=== PATIENT | female | born 1995 | race African-American/Black ===

== ENCOUNTER 2017-05-08 22:26 | Outpatient (CLI) | payer MEDICAID ==
[2017-05-08 22:58] LABS: APPEARANCE,URINE SLIGHTLY-CLOUDY; BILIRUBIN,URINE NEGATIVE (NEGATIVE); COLOR,URINE YELLOW; GLUCOSE, URINE NEGATIVE (NEGATIVE); KETONES,URINE NEGATIVE (NEGATIVE); LEUKOCYTE ESTERASE,URINE LARGE (NEGATIVE); NITRITE,URINE NEGATIVE (NEGATIVE); PROTEIN,URINE NEGATIVE (NEGATIVE); URINE SPECIFIC GRAVITY 1.004; UROBILINOGEN,URINE NEGATIVE mg/dL (<2.0)
[2017-05-08 23:09] LABS: URINE AMPHETAMINES SCREEN NEGATIVE; URINE BARBITURATES SCREEN NEGATIVE; URINE BENZODIAZEPINES SCREEN NEGATIVE; URINE COCAINE SCREEN NEGATIVE; URINE MARIJUANA (THC) SCREEN NEGATIVE; URINE METHADONE SCREEN NEGATIVE; URINE PHENCYCLIDINE SCREEN NEGATIVE
[2017-05-08 23:57] LABS: BACTERIA (WET MOUNT) 4+ BACTERIA SEEN; EPITHELIALS (WET MOUNT) 4+ EPITHELIALS SEEN; RBCS (WET MOUNT) FEW RBCS SEEN; T.VAGINALIS (WET MOUNT) COULD NOT PERFORM; WBCS (WET MOUNT) 4+ WBCS SEEN; YEAST (WET MOUNT) NO YEAST SEEN
[2017-05-09] MEDS ORDERED: METRONIDAZOLE 500 MG TABLET PO ONE (00:01)
[2017-05-09] MEDS ORDERED: METRONIDAZOLE 500 MG TABLET ONE (00:05)
--- NOTE | 2017-05-09 01:16 | Non Stress Test Report ---
Non Stress Test Datetime Report Generated by CPN: 05/09/2017 01:16 DEMOGRAPHIC Test Number: 1 EGA NST: 38.5 INDICATION Indication for Study: Ordered by Provider VITAL SIGNS Temperature - NST: 97.7 Pulse - NST: 68 RESP - NST: 16 NBPSYS NST: 114 NBPDIA NST: 66 URINE RESULTS Urine Protein, NST: Negative Urine Ketones - NST: Negative Urine Glucose - NST: Negative Urine Blood - NST: Negative MONITORING Monitor Explained: Monitor Explained; Test Explained; Patient Verbalized Understanding Time on Monitor: 05/08/2017 22:43 Time off Monitor: 05/09/2017 00:30 NST Duration: 107 NST INTERVENTIONS NST Interventions: PO Hydration BABY A: [id number] BABY A Movement : Present Contraction Frequency : none FHR Baseline : 140 Accelerations : 15X15 Decelerations : None Variability : Moderate 6-25bpm NST Review: Meets Criteria for Reactive NST NST Review and Verified By : Chalman, A. RN NST Results: Reactive NST REPORT Report Trigger: Send Report
[2017-05-09 01:19] LABS: CHLAM PCR NOT DETECTED (NOT DETECT); GON PCR NOT DETECTED (NOT DETECT)
== END 2017-05-09 00:50 | disposition home or self-care (01) ==
LOC: LC 22:26
PROVIDERS: ATTEND Student in an Organized Health Care Education/Training Program
PROC: 4A1HXCZ Monitoring of Products of Conception, Cardiac Rate, External Approach (ICD-10-PCS; principal; 2017-05-08)
DX: O47.1 False labor at or after 37 completed weeks of gestation (principal); O23.593 Infection of other part of genital tract in pregnancy, third trimester; B96.89 Other specified bacterial agents as the cause of diseases classified elsewhere; Z3A.38 38 weeks gestation of pregnancy
CPT/HCPCS: 59025; 87086; 87210; 81001; 80307; 87491; 87591; J3490

== ENCOUNTER 2017-05-20 23:39 | Outpatient (CLI) | payer MEDICAID ==
[2017-05-21 00:12] LABS: APPEARANCE,URINE CLEAR; BILIRUBIN,URINE NEGATIVE (NEGATIVE); COLOR,URINE STRAW; GLUCOSE, URINE NEGATIVE (NEGATIVE); KETONES,URINE TRACE mg/dL (NEGATIVE); LEUKOCYTE ESTERASE,URINE NEGATIVE (NEGATIVE); NITRITE,URINE NEGATIVE (NEGATIVE); PROTEIN,URINE NEGATIVE (NEGATIVE); URINE SPECIFIC GRAVITY 1.005; UROBILINOGEN,URINE NEGATIVE mg/dL (<2.0)
--- NOTE | 2017-05-21 00:56 | Non Stress Test Report ---
Non Stress Test Datetime Report Generated by CPN: 05/21/2017 00:56 DEMOGRAPHIC Test Number: 2 EGA NST: 40.4 INDICATION Indication for Study: Ordered by Provider URINE RESULTS Urine Protein, NST: Negative Urine Ketones - NST: Positive Urine Glucose - NST: Negative Urine Blood - NST: Negative MONITORING Monitor Explained: Monitor Explained; Test Explained; Patient Verbalized Understanding Time on Monitor: 05/21/2017 00:04 Time off Monitor: 05/21/2017 00:46 NST Duration: 42 NST INTERVENTIONS NST Interventions: PO Hydration Physician Notified NST: Dr. Avila BABY A: [id number] BABY A Movement : Present Contraction Frequency : occasional FHR Baseline : 135 Accelerations : 15X15 Decelerations : None Variability : Moderate 6-25bpm NST Review: Meets Criteria for Reactive NST NST Review and Verified By : NAVARRO De León NST Results: Reactive NST REPORT Report Trigger: Send Report
[2017-05-21 02:38] LABS: URINE AMPHETAMINES SCREEN NEGATIVE; URINE BARBITURATES SCREEN NEGATIVE; URINE BENZODIAZEPINES SCREEN NEGATIVE; URINE COCAINE SCREEN NEGATIVE; URINE MARIJUANA (THC) SCREEN NEGATIVE; URINE METHADONE SCREEN NEGATIVE; URINE PHENCYCLIDINE SCREEN NEGATIVE
== END 2017-05-21 01:42 | disposition home or self-care (01) ==
LOC: LC 23:39
PROVIDERS: ATTEND Obstetrics & Gynecology Gynecology
PROC: 4A1HXCZ Monitoring of Products of Conception, Cardiac Rate, External Approach (ICD-10-PCS; principal; 2017-05-20)
DX: O48.0 Post-term pregnancy (principal); Z3A.40 40 weeks gestation of pregnancy
CPT/HCPCS: 59025; 80307; 81005

== ENCOUNTER 2018-08-18 19:06 | Emergency (ER) | payer MEDICAID ==
[2018-08-18] MEDS ORDERED: HYDROCODONE/ACETAMINOPHEN 5-325 MG TABLET PO ONE (20:46)
--- NOTE | 2018-08-18 21:36 | RADIOLOGY REPORT (SQ) ---
EXAM DESCRIPTION: XR KNEE 4 OR MORE VIEWS COMPLETED DATE/TME: 08/18/2018 20:45 CLINICAL HISTORY: 22 years, Female, INJURY COMPARISON: None. NUMBER OF VIEWS: Four TECHNIQUE: Four views LEFT knee were obtained in AP, lateral and bilateral oblique projection. LIMITATIONS: None. FINDINGS: No fracture or dislocation. The joint spaces are preserved. Soft tissues are within normal limits. IMPRESSION: No acute radiographic abnormality. copyright 2010 [employer]- All Rights Reserved
[2018-08-18 21:58] LABS: APPEARANCE,URINE CLOUDY; BILIRUBIN,URINE NEGATIVE (NEGATIVE); COLOR,URINE YELLOW; GLUCOSE, URINE NEGATIVE (NEGATIVE); KETONES,URINE NEGATIVE (NEGATIVE); LEUKOCYTE ESTERASE,URINE LARGE (NEGATIVE); NITRITE,URINE NEGATIVE (NEGATIVE); PROTEIN,URINE 30 mg/dL (NEGATIVE); URINE SPECIFIC GRAVITY 1.032
--- NOTE | 2018-08-18 22:32 | ER Document Report ---
Addendum entered and electronically signed by CYNTHIA HARLEY PA-C 08/18/18 22:32: Discharge - Discharge Clinical Impression: Knee injury Qualifiers: Encounter type: initial encounter Laterality: left Qualified Code(s): S89.92XA - Unspecified injury of left lower leg, initial encounter UTI (urinary tract infection) Qualifiers: Urinary tract infection type: site unspecified Hematuria presence: without hematuria Qualified Code(s): N39.0 - Urinary tract infection, site not specified Low back pain Qualifiers: Chronicity: acute Back pain laterality: unspecified Sciatica presence: without sciatica Qualified Code(s): M54.5 - Low back pain Condition: Good Disposition: HOME, SELF-CARE Instructions: Ice & Elevation ([facility]), Sprained Knee ([facility]), Urinary Tract Infection ([facility]) Additional Instructions: Follow-up as needed for all of these problems at the [facility]. Prescriptions: Naproxen 500 mg PO BID 5 Days #10 tablet Sulfamethoxazole/Trimethoprim [Bactrim Ds Tablet] 1 each PO BID 5 Days #10 tablet Forms: Return to Work Referrals: [facility] [Provider Group] - Follow up as needed Original Note: ED General - General Chief Complaint: Knee Pain Stated Complaint: BACK PAIN Time Seen by Provider: 08/18/18 20:18 Mode of Arrival: Ambulatory Information source: Patient TRAVEL OUTSIDE OF THE [place] IN LAST 30 DAYS: No - HPI Patient complains to provider of: Left knee injury, low back pain Onset: Just prior to arrival Onset/Duration: Sudden Severity: Severe Pain Level: 5 Associated symptoms: None Exacerbated by: Movement, Walking Relieved by: Denies Similar symptoms previously: No Recently seen / treated by doctor: No Notes: 22-year-old -Algerian female coming in today with low back pain as well as and left knee injury which occurred 3 to 4 days ago. - Related Data Allergies/Adverse Reactions: No Known Allergies Allergy (Verified 05/21/17 00:36) Past Medical History - General Information source: Patient - Social History Smoking Status: Never Smoker Frequency of alcohol use: None Drug Abuse: None Family History: Reviewed & Not Pertinent Patient has suicidal ideation: No Patient has homicidal ideation: No Renal/ Medical History: Denies: Hx Peritoneal Dialysis Review of Systems - Review of Systems Notes: Constitutional: No fevers. No chills. EENT: No eye redness. No eye pain. No ear pain. No sore throat. Cardiovascular: No chest pain. No palpitations. Respiratory: No cough. No shortness of breath. No respiratory distress. Gastrointestinal: No abdominal pain. No nausea, vomiting, or diarrhea. Genitourinary: Atraumatic. No lesions. No pain. No discharge. Musculoskeletal: Positive for left knee pain, positive for low back pain Skin: No rash or lesions. Lymphatic: No swollen lymph nodes. Neurologic: No headache. No syncope. Psychiatric: No suicidal or homicidal ideation. Physical Exam - Vital signs Vitals: Temp Pulse Resp BP Pulse Ox 98.3 F 87 16 135/74 H 100 08/18/18 19:39 08/18/18 19:39 08/18/18 19:39 08/18/18 19:39 08/18/18 19:39 - Notes Notes: General: Well-developed, well-nourished. In no acute distress. Non-toxic appearing. Cardiac: Well-perfused. Regular rate and rhythm. No murmurs, rubs, or gallops. Pulmonary: No respiratory distress. No cyanosis. Bilateral lung fiels are clear to auscultation. Abdominal: Non-distended. Non-rigid. Bowels sounds are present in all four quadrants. No guarding or rebound. HEENT: Head is atraumatic. Conjunctivae not reddened. No tearing. PERRL. EOMI. Orbits atraumatic. No periorbital swelling or erythema. Oropharynx is without erythema, swelling, or exudates. Neck: Supple. No adenopathy. No meningismus. Dermatologic: Warm with good turgor. No rash. Atraumatic. Chest: Atraumatic. No chest wall tenderness to palpation. Musculoskeletal: Left-sided paralumbar tenderness. No midline tenderness or step-off left knee medial aspect infrapatellar region with a small abrasion. No obvious swelling. No crepitus. No bony deformity. Full flexion and extension. No ligamentous laxity. Distal neurovascular exam is intact Genitourinary: Examination deferred Neurologic: No gross neurologic deficits. Psychiatric: Normal mood. Course - Re-evaluation Re-evalutation: 08/18/18 22:29 UA shows what may be a mild UTI. Also looks negative. Will discharge with pain medication and something for her UTI. - Vital Signs Vital signs: Temp Pulse Resp BP Pulse Ox 98.3 F 87 16 135/74 H 100 08/18/18 19:39 08/18/18 19:39 08/18/18 19:39 08/18/18 19:39 08/18/18 19:39 - Laboratory Laboratory results interpreted by me: 08/18/18 21:20 Urine Protein 30 H Urine Urobilinogen 2.0 H Ur Leukocyte Esterase LARGE H Discharge - Discharge Clinical Impression: Knee injury Qualifiers: Encounter type: initial encounter Laterality: left Qualified Code(s): S89.92XA - Unspecified injury of left lower leg, initial encounter UTI (urinary tract infection) Qualifiers: Urinary tract infection type: site unspecified Hematuria presence: without hematuria Qualified Code(s): N39.0 - Urinary tract infection, site not specified Low back pain Qualifiers: Chronicity: acute Back pain laterality: unspecified Sciatica presence: without sciatica Qualified Code(s): M54.5 - Low back pain Condition: Good Disposition: HOME, SELF-CARE Instructions: Ice & Elevation ([facility]), Sprained Knee ([facility]), Urinary Tract Infection ([facility]) Additional Instructions: Follow-up as needed for all of these problems at the [facility]. Prescriptions: Naproxen 500 mg PO BID 5 Days #10 tablet Sulfamethoxazole/Trimethoprim [Bactrim Ds Tablet] 1 each PO BID 5 Days #10 tablet Referrals: [facility] [Provider Group] - Follow up as needed
[2018-08-18 22:40] VITALS: BP 125/60
== END 2018-08-18 22:41 | disposition home or self-care (01) ==
LOC: ER 19:06
DX: S80.212A Abrasion, left knee, initial encounter (principal); X58.XXXA Exposure to other specified factors, initial encounter; N39.0 Urinary tract infection, site not specified; M54.5 Low back pain
CPT/HCPCS: 81001; 81025; 99283

== ENCOUNTER 2018-10-09 13:34 | Emergency (ER) | payer SELFPAY ==
[2018-10-09 13:47] VITALS: BP 146/68
[2018-10-09] MEDS ORDERED: NORMAL SALINE 1000 ML 1,000 ML IV PRN (14:53)
--- NOTE | 2018-10-09 14:55 | ER Document Report ---
ED Medical Screen (RME) - General Chief Complaint: Dizziness Stated Complaint: DIZZINESS Time Seen by Provider: 10/09/18 14:52 Notes: 22-year-old G3, P1 8-week female presents to the emergency department with chief "I feel like I am going to fall out". She says that every time she stands up she gets extremely dizzy and nauseated. This started yesterday. Patient states her oral intake is been okay she drinks a lot of tea and also drinks some water. She has had associated nausea with no vomiting, denies headache, denies recent illness, denies vision changes, denies acute shortness of breath or chest pain, does complain of some left lower quadrant cramping. I have greeted and performed a rapid initial assessment of this patient. A comprehensive ED assessment and evaluation of the patient, analysis of test results and completion of medical decision making process will be conducted by an additional ED providers. TRAVEL OUTSIDE OF THE [place] IN LAST 30 DAYS: No - Related Data Allergies/Adverse Reactions: No Known Allergies Allergy (Verified 05/21/17 00:36) Past Medical History - Social History Chew tobacco use (# tins/day): No Frequency of alcohol use: None Drug Abuse: None Renal/ Medical History: Denies: Hx Peritoneal Dialysis Physical Exam - Vital signs Vitals: Temp Pulse Resp BP Pulse Ox 97.9 F 84 18 146/68 H 100 10/09/18 13:44 10/09/18 13:44 10/09/18 13:44 10/09/18 13:44 10/09/18 13:44 - Notes Notes: PHYSICAL EXAMINATION: Reviewed vital signs and charting by RN GENERAL: Alert, interacts well. No acute distress. HEAD: Normocephalic, atraumatic. EYES: Pupils equal and round. Extraocular movements intact. ENT: Oral mucosa moist, tongue midline. NECK: Full range of motion. Trachea midline. LUNGS: Clear to auscultation bilaterally, no wheezes, rales, or rhonchi. No respiratory distress. HEART: Regular rate and rhythm. No murmur ABDOMEN: Deferred in triage EXTREMITIES: Moves all 4 extremities spontaneously. No edema, No cyanosis. PSYCH: Normal affect, normal mood. SKIN: Warm, dry, normal turgor. No rashes or lesions noted. Course - Vital Signs Vital signs: Temp Pulse Resp BP Pulse Ox 97.9 F 84 18 146/68 H 100 10/09/18 13:44 10/09/18 13:44 10/09/18 13:44 10/09/18 13:44 10/09/18 13:44
== END 2018-10-09 15:12 | disposition left against medical advice (07) ==
LOC: ER 13:34
DX: Z53.21 Procedure and treatment not carried out due to patient leaving prior to being seen by health care provider (principal); O26.891 Other specified pregnancy related conditions, first trimester; R42 Dizziness and giddiness; R11.0 Nausea; Z3A.08 8 weeks gestation of pregnancy
CPT/HCPCS: 99281

== ENCOUNTER → 2018-10-18 | Outpatient (CLI) | payer SELFPAY ==
--- NOTE | 2018-10-18 17:33 | RADIOLOGY REPORT (SQ) ---
EXAM DESCRIPTION: U/S DM0MGEL TRNABD 1GES W/ODOP COMPLETED DATE/TIME: 10/18/2018 3:39 pm REASON FOR STUDY: (Z34.81)ENCOUNTER FOR SUPRVSN OF NORMAL , FIRST TRIMESTER Z34.81 ENCOUNT ER FOR SUPRVSN OF NORMAL , FIRST TRIM COMPARISON: None. TECHNIQUE: Transvaginal static and realtime grayscale images acquired of the pelvis. Additional kurt cted spectral and color Doppler images recorded. All images stored on PACs. bHCG: Not available. CLINICAL DATES: LMP 08/17/2018. 8 weeks 6 days. LIMITATIONS: None. FINDINGS: FETUS: Single Living intrauterine . ULTRASOUND EGA: 7 weeks 6 days. ULTRASOUND BRANDON: 05/31/2019 EFW: Not applicable less than 20 weeks. CRL: 1.5 cm FHR: 152 beats per minute. SURVEY: Too early to assess. AMNIOTIC FLUID: Adequate amount. PLACENTA: Not yet developed due to early gestation. SUBCHORIONIC BLEED: Yes SIZE OF BLEED: 1.1 x 0.8 x 0.5 cm. UTERUS: No masses. No anomalies. CERVICAL LENGTH: 2.2 cm. Closed. RIGHT ADNEXA: Normal ovary with normal vascular flow. 3.9 x 2.6 x 1.9 cm. No adnexal free fluid. No adnexal masses. LEFT ADNEXA: Normal ovary with normal vascular flow. 3.2 x 2.7 x 1 cm. No adnexal free fluid. No adnexal masses. FREE FLUID: None. OTHER: No other significant finding. IMPRESSION: LIVING INTRAUTERINE . EGA 7 weeks 6 days Trimester of : First trimester - 0 to 13 weeks. TECHNICAL DOCUMENTATION: JOB ID: [id number] [employer]- All Rights Reserved rev-08/07 Reading location - IP/workstation name: [email or web address]
== END ==
LOC: RAD 14:43
PROVIDERS: ATTEND Midwife
DX: Z34.81 Encounter for supervision of other normal pregnancy, first trimester (principal)
CPT/HCPCS: 76801

== ENCOUNTER 2018-12-21 15:25 | Emergency (ER) | payer MEDICAID ==
[2018-12-21] MEDS ORDERED: ACETAMINOPHEN 325 MG TABLET PO ONE (16:54)
[2018-12-21] MEDS ORDERED: NORMAL SALINE 1000 ML 1,000 ML IV ONE (16:55)
[2018-12-21] MEDS ORDERED: PROMETHAZINE HCL INJ 25 MG/1 ML VIAL IV ONE (16:55)
--- NOTE | 2018-12-21 17:03 | ER Document Report ---
ED General - General Chief Complaint: Abdominal Pain Stated Complaint: ABDOMINAL PAIN Time Seen by Provider: 12/21/18 15:55 Primary Care Provider: JOSEF ISRAEL CNM [Primary Care Provider] - Follow up in 3-5 days Notes: Patient is a G3, P1 23-year-old female who presents the emergency department with a chief complaint of abdominal pain. Patient states that it feels like she is having a cramping feeling, similar to contractions. Patient states that she has had some nausea, vomiting, and diarrhea. Patient denies any vaginal discharge or vaginal bleeding. Patient states that she takes iron and vitamins. She states that she is being seen for care. TRAVEL OUTSIDE OF THE [place] IN LAST 30 DAYS: No - Related Data Allergies/Adverse Reactions: No Known Allergies Allergy (Verified 12/21/18 16:34) Past Medical History - Social History Smoking Status: Unknown if Ever Smoked Family History: Reviewed & Not Pertinent Patient has suicidal ideation: No Patient has homicidal ideation: No Renal/ Medical History: Denies: Hx Peritoneal Dialysis Review of Systems - Review of Systems Notes: REVIEW OF SYSTEMS: CONSTITUTIONAL : Denies recent illness. Denies recent unintentional weight loss. Denies fever, chills, or sweats. EENT: Denies eye, ear, throat, or mouth pain, discharge, or symptoms. Denies nasal or sinus congestion. CARDIOVASCULAR: Denies chest pain. RESPIRATORY: Denies shortness of breath, cough, congestion, difficulty breathing, or wheezing. GASTROINTESTINAL: See HPI. GENITOURINARY: Denies difficulty urinating, burning, blood in urine, urgency or frequency. FEMALE GENITOURINARY: See HPI. MUSCULOSKELETAL: Denies neck and back pain. Denies joint pain or swelling. SKIN: Denies rash, itchiness, or lesions HEMATOLOGIC : Denies easy bruising or bleeding. LYMPHATIC: Denies swollen, painful, enlarged glands. NEUROLOGICAL: Denies no numbness or tingling denies weakness. Denies headache. Denies altered mental status. Denies alteration in speech. PSYCHIATRIC: Denies stress, anxiety, alteration in sleep patterns, or depression. All other systems reviewed and negative. Physical Exam - Vital signs Vitals: Temp Pulse Resp BP Pulse Ox 98.4 F 88 20 116/60 100 12/21/18 15:53 12/21/18 15:53 12/21/18 15:53 12/21/18 15:53 12/21/18 15:53 - Notes Notes: PHYSICAL EXAMINATION: GENERAL: Appears well, healthy, well-nourished, no acute distress. HEAD: Normocephalic, atraumatic. EYES: PERRL, conjunctiva normal, all extraocular movements intact, sclera nonicteric ENT: Moist mucous membranes. NECK: Supple, no noticeable swelling, redness, rash. Normal range of motion. LUNGS: Equal breath sounds bilaterally and clear to auscultation. No wheezes rales or rhonchi. CARDIOVASCULAR: S1-S2, regular rate, regular rhythm. Radial pulses 2+, normal. ABDOMEN: Normoactive bowel sounds. Soft, mildly tender mid abdomen, no guarding, no rebound tenderness, and no masses palpated. Noticeably . Fundus about 17 cm above the pubic symphysis. EXTREMITIES: Normal strength and range of motion, no pitting or edema. No cyanosis. NEUROLOGICAL: Moves all extremities upon command. Strength 5/5 in all extremities. PSYCH: Normal mood, normal affect. SKIN: Warm, dry. No rash, lesions, ulcerations noted. Normal skin turgor. Course - Re-evaluation Re-evalutation: 12/21/18 22:22 Ultrasound shows 17-week 1 day living intrauterine . No abnormalities noted. Hematology shows anemia, with a hemoglobin of 9.2 and hematocrit of 28.1. This is normal for the patient, as she states that she is normally anemic. No leukocytosis noted. Chemistries are unremarkable. Beta hCG is 46,430, which is consistent with her 17 weeks gestation. Urinalysis shows that she has ketones in her urine. Patient is tolerating oral fluids at this time and she states she feels better after receiving Phenergan. I suspect that she has ketones in her urine due to her vomiting. Patient will follow up with her HORTICULTURAL FARMER in regards to this visit. Follow-up precautions were given. Verbal discharge instructions were given to the patient. They verbalized understanding. They are stable for discharge. - Vital Signs Vital signs: Temp Pulse Resp BP Pulse Ox 98.5 F 87 18 119/67 99 12/21/18 19:20 12/21/18 19:20 12/21/18 19:20 12/21/18 19:20 10/01/19 19:20 - Laboratory Result Diagrams: 12/21/18 17:15 12/21/18 17:15 Laboratory results interpreted by me: 12/21/18 12/21/18 12/21/18 17:15 17:15 17:15 Hgb 9.2 L Hct 28.1 L MCV 73 L MCH 23.8 L RDW 18.4 H Sodium 134.5 L Carbon Dioxide 21 L BUN 5 L Creatinine 0.49 L Serum HCG, Qual POSITIVE H Beta HCG, Quant 19891.00 H Urine Ketones 12/21/18 18:12 Hgb Hct MCV MCH RDW Sodium Carbon Dioxide BUN Creatinine Serum HCG, Qual Beta HCG, Quant Urine Ketones 80 H Discharge - Discharge Clinical Impression: 17 weeks gestation of Abdominal pain Qualifiers: Abdominal location: epigastric Qualified Code(s): R10.13 - Epigastric pain Nausea and vomiting Qualifiers: Vomiting type: unspecified Vomiting Intractability: unspecified Qualified Code(s): R11.2 - Nausea with vomiting, unspecified Condition: Stable Disposition: HOME, SELF-CARE Instructions: Abdominal Pain ([facility]), Antinausea Medication ([facility]), Vomiting ([facility]) Additional Instructions: You were seen today in the emergency department for abdominal pain, nausea, diarrhea, and vomiting. Your labs are normal. Your pain and nausea resolved here in the emergency department. You are being sent home with nausea medication. Take as prescribed. You can take Tylenol 1000 mg every 6 hours as needed for your pain. This is safe for . Please follow-up with your HORTICULTURAL FARMER. If your symptoms get worse, please return to the emergency department. Prescriptions: Promethazine HCl [Phenergan 25 mg Tablet] 1 - 2 tab PO Q6H PRN #15 tablet PRN Reason: Forms: Special Work Note Referrals: JOSEF ISRAEL CNM [Primary Care Provider] - Follow up in 3-5 days
[2018-12-21 17:26] LABS: ABSOLUTE BASOPHILS # (AUTO) 0.1 10^3/uL (0.0-0.2); ABSOLUTE EOSINOPHILS # (AUTO) 0.1 10^3/uL (0.0-0.6); ABSOLUTE LYMPHOCYTES (AUTO) 2.2 10^3/uL (0.5-4.7); ABSOLUTE MONOCYTES (AUTO) 0.6 10^3/uL (0.1-1.4); ABSOLUTE NEUT (AUTO) 5.6 10^3/uL (1.7-8.2); BASOPHILS % (AUTO) 1.1 % (0-2); EOSINOPHILS % (AUTO) 0.6 % (0-6); HEMATOCRIT 28.1 % (36.0-47.0); HEMOGLOBIN 9.2 g/dL (12.0-15.5); LYMPHOCYTES % (AUTO) 25.5 % (13-45); MEAN CORPUSCULAR HEMOGLOBIN 23.8 pg (27.0-33.4); MEAN CORPUSCULAR HGB CONC 32.8 g/dL (32.0-36.0); MEAN CORPUSCULAR VOLUME 73 fl (80-97); MONOCYTES % (AUTO) 6.9 % (3-13); PLATELET COUNT 393 10^3/uL (150-450); RED BLOOD COUNT 3.87 10^6/uL (3.72-5.28); RED CELL DISTRIBUTION WIDTH 18.4 % (11.5-14.0); SEGMENTED NEUTROPHILS % (AUTO) 65.9 % (42-78); TOTAL CELLS COUNTED % (AUTO) 100 %; WHITE BLOOD COUNT 8.5 10^3/uL (4.0-10.5)
[2018-12-21 17:53] LABS: ALBUMIN 3.7 g/dL (3.5-5.0); ALKALINE PHOSPHATASE 109 U/L (38-126); ANION GAP 12 (5-19); ASPARTATE AMINO TRANSFERASE 27 U/L (14-36); BILIRUBIN,DIRECT 0.1 mg/dL (0.0-0.4); BILIRUBIN,TOTAL 0.5 mg/dL (0.2-1.3); BLOOD UREA NITROGEN 5 mg/dL (7-20); CALCIUM 9.4 mg/dL (8.4-10.2); CARBON DIOXIDE 21 mmol/L (22-30); CHLORIDE 102 mmol/L (98-107); GLUCOSE 78 mg/dL (75-110); POTASSIUM 3.8 mmol/L (3.6-5.0); TOTAL PROTEIN 7.3 g/dL (6.3-8.2)
[2018-12-21 18:37] LABS: APPEARANCE,URINE CLEAR; BILIRUBIN,URINE NEGATIVE (NEGATIVE); COLOR,URINE YELLOW; GLUCOSE, URINE NEGATIVE (NEGATIVE); KETONES,URINE 80 mg/dL (NEGATIVE); LEUKOCYTE ESTERASE,URINE NEGATIVE (NEGATIVE); NITRITE,URINE NEGATIVE (NEGATIVE); PROTEIN,URINE NEGATIVE (NEGATIVE); URINE SPECIFIC GRAVITY 1.013; UROBILINOGEN,URINE NEGATIVE mg/dL (<2.0)
--- NOTE | 2018-12-21 19:03 | RADIOLOGY REPORT (SQ) ---
EXAM DESCRIPTION: U/S OB 14+ TA/1 GEST W/DOPPLER COMPLETED DATE/TIME: 12/21/2018 6:53 pm REASON FOR STUDY: abd pain COMPARISON: 10/18/2018. TECHNIQUE: Transabdominal static and realtime grayscale images acquired of the pelvis. Additional se lected spectral and color Doppler images recorded. All images stored on PACs. CLINICAL DATES: 17 week 0 day. LIMITATIONS: None. FINDINGS: FETUS: Single Living intrauterine . ULTRASOUND EGA: 17 week 1 day. ULTRASOUND BRANDON: 05/30/2019. EFW: 187 g. FHR: 165 beats per minute. SURVEY: No visualized anomalies. AMNIOTIC FLUID: Largest measured pocket 3.2 cm. PLACENTA: Posterior. CERVICAL LENGTH: 2.2 cm. Closed. FREE FLUID: None. OTHER: No other significant finding. IMPRESSION: LIVING INTRAUTERINE . EGA 17 WEEK 1 DAY. Trimester of : Second trimester - 13 weeks 1 day to 27 weeks 6 days. TECHNICAL DOCUMENTATION: JOB ID: [id number] [email or web address]- All Rights Reserved rev-08/07 Reading location - IP/workstation name: [email or web address]
[2018-12-21 19:23] VITALS: BP 119/67
== END 2018-12-21 19:22 | disposition home or self-care (01) ==
LOC: ER 15:25
DX: O26.892 Other specified pregnancy related conditions, second trimester (principal); R10.13 Epigastric pain; R19.7 Diarrhea, unspecified; O21.9 Vomiting of pregnancy, unspecified; O99.012 Anemia complicating pregnancy, second trimester; D64.9 Anemia, unspecified; Z79.899 Other long term (current) drug therapy; Z3A.17 17 weeks gestation of pregnancy
CPT/HCPCS: 36415; 84702; 84703; 85025; 80053; 81001; 76805; 93976; J3490; J2550; J7030

== ENCOUNTER 2018-12-23 20:41 | Emergency (ER) | payer MEDICAID ==
[2018-12-23 20:50] VITALS: BP 111/59
== END 2018-12-23 21:15 | disposition left against medical advice (07) ==
LOC: ER 20:41
DX: Z53.21 Procedure and treatment not carried out due to patient leaving prior to being seen by health care provider (principal)

== ENCOUNTER 2019-01-08 16:19 | Emergency (ER) | payer MEDICAID ==
--- NOTE | 2019-01-08 17:01 | ER Document Report ---
ED Medical Screen (RME) - General Chief Complaint: OB Problem (<20wks) Stated Complaint: URINARY PROBLEMS Time Seen by Provider: 01/08/19 16:57 Primary Care Provider: JOSEF ISRAEL CNM [Primary Care Provider] - Follow up as needed Mode of Arrival: Ambulatory Information source: Patient Notes: 23-year-old female presents to ED for complaint of loss of mucous plug. She states she is due May 30. She states she called the nurse line and they told her to come to the emergency room to have a labor check that she could be having a labor. She states when she came to the emergency room they told her she needed to be seen in the ER as she was less than 20 weeks . I have greeted and performed a rapid initial assessment of this patient. A comprehensive ED assessment and evaluation of the patient, analysis of test results and completion of medical decision making process will be conducted by an additional ED providers. TRAVEL OUTSIDE OF THE [place] IN LAST 30 DAYS: No - Related Data Allergies/Adverse Reactions: No Known Allergies Allergy (Verified 01/08/19 16:54) Past Medical History Renal/ Medical History: Denies: Hx Peritoneal Dialysis Physical Exam - Vital signs Vitals: Temp Pulse Resp BP Pulse Ox 98.5 F 117 H 18 125/78 99 01/08/19 16:21 01/08/19 16:21 01/08/19 16:21 01/08/19 16:21 01/08/19 16:21 Course - Vital Signs Vital signs: Temp Pulse Resp BP Pulse Ox 98.5 F 117 H 18 125/78 99 01/08/19 16:21 01/08/19 16:21 01/08/19 16:21 01/08/19 16:21 01/08/19 16:21 Doctor's Discharge - Discharge Referrals: JOSEF ISRAEL CNM [Primary Care Provider] - Follow up as needed
--- NOTE | 2019-01-08 17:09 | ER Document Report ---
Doctor's Note Notes: 01/08/19 17:[address] Shi FINANCIAL SERVICES INTERN software applications designer. She states she would come down get heart tones and examined the patient. I did explain to her that it might be a while before I could get a ultrasound and the patient stated that she had passed her show and was 19 weeks 4 days. I have placed the patient in room 1 and informed the nurses that the FINANCIAL SERVICES INTERN doctor was on her way down to see the patient.
--- NOTE | 2019-01-08 17:54 | PDOC CONSULTATION ---
Consultation Consult Date: 01/08/19 Attending physician:: CRISTI OLGUIN Provider Consulted: BRIJESH PEÑA Consult reason:: Rule out labor History of Present Illness Admission Date/PCP: JOSEF ISRAEL CNM History of Present Illness: LISA DA SILVA is a 23 year old female at 19.5 wks EGA who presented to the ED b/c of mucus type vaginal discharge. Patient reports " I wiped a thick mucus from my vagina and my Mom said it could be my mucus plug. I looked on internet and it said it can be a sign of labor so I came in". Denies vaginal bleeding, cramping, contractions, pressure, pain. SHe feels good otherwise. SHe has hx of one prior at term and one first trimester SAB. Past Medical History LMP: 08/2018 Gynecological Infection: No Obstetrical History: none - NO hx of labor Social History Smoking Status: Never Smoker Electronic Cigarette use?: No Family History Family History: Reviewed & Not Pertinent Parental Family History Reviewed: Yes - non-contributory Children Family History Reviewed: Unknown Sibling(s) Family History Reviewed.: Unknown Medication/Allergy Home Medications: No122/Iron/Folic Acid [ Multi Tablet] 1 tab PO DAILY 05/09/17 Ferrous Sulfate [Iron] 325 mg PO DAILY 05/21/17 Naproxen 500 mg PO BID 5 Days #10 tablet 08/18/18 Sulfamethoxazole/Trimethoprim [Bactrim Ds Tablet] 1 each PO BID 5 Days #10 tablet 08/18/18 Promethazine HCl [Phenergan 25 mg Tablet] 1 - 2 tab PO Q6H PRN #15 tablet 12/21/18 Allergies/Adverse Reactions: No Known Allergies Allergy (Verified 01/08/19 16:54) Review of Systems Constitutional: PRESENT: as per HPI Cardiovascular: ABSENT: chest pain, dyspnea on exertion, edema, orthropnea, palpitations Respiratory: ABSENT: cough, hemoptysis Gastrointestinal: ABSENT: abdominal pain, constipation, diarrhea, hematemesis, hematochezia, nausea, vomiting Genitourinary: ABSENT: dysuria, hematuria Physical Exam - Physical Exam Vital Signs: Temp Pulse Resp BP Pulse Ox 98.5 F 117 H 18 125/78 99 01/08/19 16:21 01/08/19 16:21 01/08/19 16:21 01/08/19 16:21 01/08/19 16:21 Intake & Output 01/07/19 01/08/19 01/09/19 06:59 06:59 06:59 Weight 96.6 kg - Gynecological Exam Labia: normal Introitus: normal Perineum: normal Vagina: normal - NO blood in vault. Small amount of white vaginal discharge. Cervix: normal - Cervix closed. Assessment & Plan - Diagnosis (1) Clear vaginal discharge Is this a current diagnosis for this admission?: Yes - Time Critical Time spent with patient: 15-24 minutes Anticipated discharge: Home Within: within 24 hours - Plan Summary Plan Summary: 23 yo at 19.5 wks with clear Vaginal discharge -VSS -Exam negative and cervix closed. -Doppler heart tones of 155 bpm. Reassured patient this is normal FHT -Discussed physiologic changes in vaginal discharge in . SOmetimes the discharge is increased in and this is normal. Precautions given to return for gush of fluild, painful contractions , vaginal bleeding like a period,or worsening condition. -NO labor -Keep scheduled f/u with [facility] and [facility]
--- NOTE | 2019-01-08 18:08 | ER Document Report ---
ED GI/ - General Chief Complaint: OB Problem (<20wks) Stated Complaint: URINARY PROBLEMS Time Seen by Provider: 01/08/19 16:57 Primary Care Provider: [facility] [Provider Group] - Follow up as needed Mode of Arrival: Ambulatory Notes: Patient is a 23-year-old G3, P1 who is 19 weeks and 4 days who presents emergency department with a chief complaint of possible passing of her mucus plug. Patient states around 1353 this afternoon she had clear vaginal discharge that was a thick mucus. Patient reports she has not had this discharge since then. Patient was concerned that she possibly passed her mucous plug. Patient denies abdominal pain, vaginal bleeding or cramping. Patient states she called the on-call provider at her [facility] who suggested she come to the emergency department. Patient denies recent illness. TRAVEL OUTSIDE OF THE [place] IN LAST 30 DAYS: No - Related Data Allergies/Adverse Reactions: No Known Allergies Allergy (Verified 01/08/19 16:54) Home Medications: vitamins. ferrous sulfate Past Medical History - General Information source: Patient - Social History Smoking Status: Never Smoker Chew tobacco use (# tins/day): No Frequency of alcohol use: None Drug Abuse: None Family History: Reviewed & Not Pertinent Patient has suicidal ideation: No Patient has homicidal ideation: No - Past Medical History Cardiac Medical History: Reports: None Pulmonary Medical History: Reports: None EENT Medical History: Reports: None Neurological Medical History: Reports: None Endocrine Medical History: Reports: None Renal/ Medical History: Reports: None. Denies: Hx Peritoneal Dialysis Malignancy Medical History: Reports: None GI Medical History: Reports: None Musculoskeletal Medical History: Reports None Skin Medical History: Reports None Psychiatric Medical History: Reports: None Traumatic Medical History: Reports: None Infectious Medical History: Reports: None Surgical Hx: Negative Review of Systems - Review of Systems Constitutional: No symptoms reported EENT: No symptoms reported Cardiovascular: No symptoms reported Respiratory: No symptoms reported Gastrointestinal: No symptoms reported Genitourinary: No symptoms reported Female Genitourinary: See HPI Musculoskeletal: No symptoms reported Skin: No symptoms reported Hematologic/Lymphatic: No symptoms reported Neurological/Psychological: No symptoms reported Physical Exam - Vital signs Vitals: Temp Pulse Resp BP Pulse Ox 98.5 F 117 H 18 125/78 99 01/08/19 16:21 01/08/19 16:21 01/08/19 16:21 01/08/19 16:21 01/08/19 16:21 Interpretation: Tachycardic - Notes Notes: GENERAL: Well-appearing, well-nourished and in no acute distress. HEAD: Atraumatic, normocephalic. EYES: Pupils equal round and reactive to light, extraocular movements intact, sclera anicteric, conjunctiva are normal. ENT: TMs normal, nares patent, oropharynx clear without exudates. Moist mucous membranes. NECK: Normal range of motion, supple without lymphadenopathy or JVD. LUNGS: Breath sounds clear to auscultation bilaterally and equal. No wheezes rales or rhonchi. HEART: Regular rate and rhythm without murmurs, rubs or gallops. ABDOMEN: Soft, nontender, , normoactive bowel sounds. No guarding, no rebound. No masses appreciated. BACK: No cervical, thoracic, lumbar midline tenderness. No saddle anesthesia, normal distal neurovascular exam. GENITOURINARY: Deferred. EXTREMITIES: Normal range of motion, no pitting or edema. No clubbing or cyanosis. NEUROLOGICAL: Cranial nerves II through XII grossly intact. Normal speech, normal gait. PSYCH: Normal mood, normal affect. SKIN: Warm, Dry, normal turgor, no rashes or lesions noted. Course - Re-evaluation Re-evalutation: 01/08/19 18:05 Patient reports around 1:30 PM this afternoon she did notice a clump of mucus come out of her vagina. Patient denies vaginal bleeding. Patient reports she has not had any vaginal discharge since then. Patient states she is 19 weeks a nd 4 days . Patient denies abdominal pain, cramping, contraction type feeling. I did speak with Dr. Shi who who did come down to the emergency department for patient evaluation. She did obtain heart tones at 155. Due to the patient not having any pain or contractions she states that she does not believe the blood work and ultrasound as needed. She does recommend the patient following up with [facility] on Thursday. I did discuss this with the patient. Patient reports she feels much better knowing that she was assessed by an OB physician. Patient was found to be initially tachycardic in triage. It was noted that she was extremely upset while in triage. Her vital signs have since improved. Patient is calm cooperative and in no acute distress. Patient nontoxic-appearing. - Vital Signs Vital signs: Temp Pulse Resp BP Pulse Ox 98.2 F 81 16 119/55 L 100 01/08/19 18:15 01/08/19 18:15 01/08/19 18:15 01/08/19 18:15 01/08/19 18:15 Discharge - Discharge Clinical Impression: Vaginal discharge Condition: Stable Disposition: HOME, SELF-CARE Additional Instructions: Today you are seen in emergency department for vaginal discharge as you are concerned you may have passed her mucous plug. You are assessed by our on-call [employer]GAL [employer]EARCH [employer]. Her physical examination was reassuring. No further laboratory testing or ultrasound is needed at this time. Please follow-up with [facility] on Thursday. Please return to emergency department if you develop contractions, vaginal bleeding, increased vaginal discharge, abdominal pain or any new or worsening symptoms. Forms: Return to Work Referrals: [facility] [Provider Group] - Follow up as needed
[2019-01-08 18:19] VITALS: BP 119/55
== END 2019-01-08 18:30 | disposition home or self-care (01) ==
LOC: ER 16:19
DX: O26.892 Other specified pregnancy related conditions, second trimester (principal); N89.8 Other specified noninflammatory disorders of vagina; R39.198 Other difficulties with micturition; Z3A.19 19 weeks gestation of pregnancy

== ENCOUNTER 2019-03-22 15:17 | Outpatient (CLI) | payer MEDICAID ==
[2019-03-22 16:40] LABS: T.VAGINALIS (WET MOUNT) NO TRICHOMONAS SEEN; WBCS (WET MOUNT) RARE WBCS SEEN; YEAST (WET MOUNT) NO YEAST SEEN
[2019-03-22] MEDS ORDERED: BETAMET ACET/BETAMET NA INJ 6 MG/1 ML IM ONE (17:02)
[2019-03-22] MEDS ORDERED: BETAMET ACET/BETAMET NA INJ 6 MG/1 ML ONE (17:09)
[2019-03-22 17:32] LABS: CHLAM PCR NOT DETECTED (NOT DETECT)
--- NOTE | 2019-03-22 18:31 | RADIOLOGY REPORT (SQ) ---
EXAM DESCRIPTION: U/S OB LIMITED COMPLETED DATE/TIME: 03/22/2019 5:04 pm REASON FOR STUDY: contractions- TV cervix COMPARISON: 07/19/2018 TECHNIQUE: Limited transvaginal grayscale ultrasound for evaluation of specific requested obstetrica l parameters. LIMITATIONS: None. FINDINGS: CERVICAL LENGTH: 2.05 cm Closed. LVP: 3 cm. FHR: 115 beats per minute. PRESENTATION: Cephalic. PLACENTA: Posterior ANATOMY: Not assessed OTHER: No other significant findings. IMPRESSION: LIMITED OBSTETRICAL ULTRASOUND WITH MEASURED PARAMETERS DELINEATED ABOVE. Trimester of : Third trimester - 28 weeks to delivery. TECHNICAL DOCUMENTATION: JOB ID: [id number] [employer]- All Rights Reserved Reading location - IP/workstation name: [email or web address]
== END 2019-03-22 17:37 | disposition home or self-care (01) ==
LOC: LC 15:17
PROVIDERS: ATTEND Student in an Organized Health Care Education/Training Program
PROC: 4A1HXCZ Monitoring of Products of Conception, Cardiac Rate, External Approach (ICD-10-PCS; principal; 2019-03-22)
DX: O47.03 False labor before 37 completed weeks of gestation, third trimester (principal); Z3A.30 30 weeks gestation of pregnancy
CPT/HCPCS: 59899; 87210; 87491; 87591; 76815; J0702

== ENCOUNTER 2019-03-23 14:15 | Outpatient (CLI) | payer MEDICAID ==
[2019-03-23 14:53] LABS: APPEARANCE,URINE SLIGHTLY-CLOUDY; BILIRUBIN,URINE NEGATIVE (NEGATIVE); COLOR,URINE YELLOW; GLUCOSE, URINE NEGATIVE (NEGATIVE); KETONES,URINE 20 mg/dL (NEGATIVE); LEUKOCYTE ESTERASE,URINE TRACE (NEGATIVE); NITRITE,URINE NEGATIVE (NEGATIVE); PROTEIN,URINE 30 mg/dL (NEGATIVE); URINE SPECIFIC GRAVITY 1.025
[2019-03-23 15:04] LABS: URINE AMPHETAMINES SCREEN NEGATIVE; URINE BARBITURATES SCREEN NEGATIVE; URINE BENZODIAZEPINES SCREEN NEGATIVE; URINE COCAINE SCREEN NEGATIVE; URINE METHADONE SCREEN NEGATIVE; URINE PHENCYCLIDINE SCREEN NEGATIVE
[2019-03-23 15:25] LABS: URINE MARIJUANA (THC) SCREEN UNCONFIRMED POSITIVE
[2019-03-23] MEDS ORDERED: ACETAMINOPHEN 325 MG TABLET PO ONE ×2 (15:36→15:39)
[2019-03-23] MEDS ORDERED: BETAMET ACET/BETAMET NA INJ 6 MG/1 ML IM ONE (15:37)
--- NOTE | 2019-03-23 15:55 | Non Stress Test Report ---
Non Stress Test Datetime Report Generated by CPN: 03/23/2019 15:54 DEMOGRAPHIC EGA NST: 30.1 INDICATION Indication for Study (NST) Other: back pain , leaking of fluid VITAL SIGNS Temperature - NST: 98.8 MONITORING Monitor Explained: Monitor Explained; Test Explained; Patient Verbalized Understanding Time on Monitor: 03/23/2019 14:20 Time off Monitor: 03/23/2019 15:53 Time off Monitor: 03/23/2019 15:53 NST Duration: 93 NST INTERVENTIONS NST Interventions: PO Hydration; Reposition Patient BABY A: [id number] BABY A Movement : Present Contraction Frequency : none FHR Baseline : 135 Accelerations : 15X15 Decelerations : None Variability : Moderate 6-25bpm NST Review: Meets Criteria for Reactive NST NST Review and Verified By : Jay Villanueva RN NST Results: Reactive NST REPORT Report Trigger: Send Report
[2019-03-23] MEDS ORDERED: ACETAMINOPHEN 325 MG TABLET ONE (16:06)
--- NOTE | 2019-03-23 16:26 | RADIOLOGY REPORT (SQ) ---
EXAM DESCRIPTION: U/S OB LIMITED COMPLETED DATE/TIME: 03/23/2019 4:04 pm REASON FOR STUDY: HUNG COMPARISON: 03/22/2019. TECHNIQUE: Limited transabdominal grayscale ultrasound for evaluation of specific requested obstetri monica parameters. LIMITATIONS: None. FINDINGS: CERVICAL LENGTH: 2.4 cm. Closed. HUNG: 7.9 cm. Largest vertical pocket 2.9 cm. FHR: 141 beats per minute. PRESENTATION: Cephalic. PLACENTA: Posterior without abruption or previa. ANATOMY: Not assessed OTHER: No other significant findings. IMPRESSION: LIMITED OBSTETRICAL ULTRASOUND WITH MEASURED PARAMETERS DELINEATED ABOVE. Trimester of : Third trimester - 28 weeks to delivery. TECHNICAL DOCUMENTATION: JOB ID: [id number] [employer]- All Rights Reserved Reading location - IP/workstation name: [email or web address]
[2019-03-23] MEDS ORDERED: BETAMET ACET/BETAMET NA INJ 6 MG/1 ML ONE (16:29)
== END 2019-03-23 16:54 | disposition home or self-care (01) ==
LOC: LC 14:15
PROVIDERS: ATTEND Obstetrics & Gynecology
DX: O42.913 Preterm premature rupture of membranes, unspecified as to length of time between rupture and onset of labor, third trimester (principal); O47.03 False labor before 37 completed weeks of gestation, third trimester; Z3A.30 30 weeks gestation of pregnancy
CPT/HCPCS: 59899; 81001; 80307; 84112; 76815; G0480 ×2; J3490; J0702; 59025; 80349; 96372

== ENCOUNTER 2019-04-28 22:10 | Outpatient (CLI) | payer MEDICAID ==
[2019-04-28] MEDS ORDERED: MAG HYDROX/AL HYDROX/SIMETH SUSP 30 ML UDCUP ONE (23:11)
[2019-04-28 23:23] LABS: APPEARANCE,URINE CLEAR; BILIRUBIN,URINE NEGATIVE (NEGATIVE); COLOR,URINE YELLOW; GLUCOSE, URINE NEGATIVE (NEGATIVE); KETONES,URINE 20 mg/dL (NEGATIVE); LEUKOCYTE ESTERASE,URINE NEGATIVE (NEGATIVE); NITRITE,URINE NEGATIVE (NEGATIVE); PROTEIN,URINE NEGATIVE (NEGATIVE); URINE SPECIFIC GRAVITY 1.011
[2019-04-28] MEDS ORDERED: MAG HYDROX/AL HYDROX/SIMETH SUSP 30 ML UDCUP PO ONE (23:30)
[2019-04-28 23:36] LABS: URINE AMPHETAMINES SCREEN NEGATIVE; URINE BARBITURATES SCREEN NEGATIVE; URINE BENZODIAZEPINES SCREEN NEGATIVE; URINE COCAINE SCREEN NEGATIVE; URINE METHADONE SCREEN NEGATIVE; URINE PHENCYCLIDINE SCREEN NEGATIVE
[2019-04-28 23:38] LABS: URINE MARIJUANA (THC) SCREEN UNCONFIRMED POSITIVE
[2019-04-28] MEDS ORDERED: ACETAMINOPHEN 325 MG TABLET ONE (23:41)
--- NOTE | 2019-04-28 23:57 | RADIOLOGY REPORT (SQ) ---
EXAM DESCRIPTION: US LIMITED CLINICAL HISTORY: 23 years Female HUNG, COMPARISON: None TECHNIQUE: Transabdominal limited OB ultrasound was performed. FINDINGS: There is a single intrauterine in a vertex presentation. The cervix is closed and measures 2.6 cm in length. The amniotic fluid index measures 5.2 cm. The deepest pocket measures 2.65 cm. A heart rate is measured at 155 bpm. The placenta is fundal. The clinical age is 35 weeks 2 days. IMPRESSION: Single viable intrauterine in a vertex presentation with a very low amniotic fluid index of 5.2 cm. The deepest pocket measures 2.65 cm. The placenta is fundal.
[2019-04-29] MEDS ORDERED: RINGERS SOLUTION,LACTATED 1,000 ML IV PRN (00:03)
[2019-04-29] MEDS ORDERED: RINGERS SOLUTION,LACTATED 1,000 ML IV ONE (00:30)
[2019-04-29 00:54] LABS: ABSOLUTE LYMPHOCYTES (AUTO) 1.4 10^3/uL (0.5-4.7); ABSOLUTE MONOCYTES (AUTO) 0.7 10^3/uL (0.1-1.4); ABSOLUTE NEUT (AUTO) 8.5 10^3/uL (1.7-8.2); BASOPHILS % (AUTO) 0.2 % (0-2); EOSINOPHILS % (AUTO) 0.3 % (0-6); HEMATOCRIT 20.6 % (36.0-47.0); LYMPHOCYTES % (AUTO) 13.5 % (13-45); MEAN CORPUSCULAR HEMOGLOBIN 21.4 pg (27.0-33.4); MEAN CORPUSCULAR HGB CONC 32.3 g/dL (32.0-36.0); MEAN CORPUSCULAR VOLUME 66 fl (80-97); MONOCYTES % (AUTO) 6.3 % (3-13); PLATELET COUNT 241 10^3/uL (150-450); RED BLOOD COUNT 3.12 10^6/uL (3.72-5.28); RED CELL DISTRIBUTION WIDTH 18.2 % (11.5-14.0); SEGMENTED NEUTROPHILS % (AUTO) 79.7 % (42-78); TOTAL CELLS COUNTED % (AUTO) 100 %; WHITE BLOOD COUNT 10.7 10^3/uL (4.0-10.5)
[2019-04-29 00:56] LABS: HEMOGLOBIN 6.7 g/dL (12.0-15.5)
--- NOTE | 2019-04-29 02:25 | Admission Physical ---
Datetime Report Generated by CPN: 04/29/2019 02:25 CURRENT ADMISSION Chief Complaint: Suspected Ruptured Membranes Chief Complaint Other: oligo Indication for Induction: Not Applicable Admit Impression : Term, Intrauterine Admit Plan: Observation/Evaluation ALLERGIES Medication Allergies: No Medication Allergies: No Known Allergies (01/08/2019) Latex: No Latex Allergies OBSTETRICAL HISTORY EDC: 05/31/2019 00:00 : 3 Para: 1 Term: 1 : 0 SAB: 0 IAB: 0 Ectopic: 0 Livin Cesareans: 0 VBACs: 0 Multiple Births: 0 Obstetrical History Comments: G1: 2018 41 wks 8lbs 5 oz male vaginal G2: 6wks SAB SEE RECORDS Marijuana : Yes MEDICAL HISTORY Hosp/Surgery: Yes Medical History Comments: anemia, arm surgery, childbirth INFECTIOUS HISTORY Chlamydia: Yes Infectious History Comments: chlamydia patient and partner treated 10/1/19 PHYSICAL EXAM General: Normal HEENT: Normal Neurologic: Normal Thyroid: Normal Heart: Normal Lungs: Normal Breast: Deferred Back: Normal Abdomen: Normal Genitourinary Exam: Normal Extremities: Normal DTRs: Normal Pelvic Type: Adequate Vital Signs: Reviewed MEMBRANES Pooling: Negative Membranes: Intact FETUS A EGA: 35.3 Monitoring: External US Variability: Moderate 6-25bpm Decelerations: None Presentation: Vertex Admit Comment: admit for iv fluids and possibly venofer INFORMED CONSENT Signature: with User ID: [email or web address]
[2019-04-29] MEDS ORDERED: IRON SUCROSE COMPLEX INJ/PF 100 MG/5 ML SDV IV ONE (03:00)
--- NOTE | 2019-04-29 11:08 | PDOC PROGRESS REPORT ---
Subjective Progress Note for:: 04/29/19 Subjective:: No ctx, leaking of fluid, vaginal bleeding, fever or chills. Reports good FM She had suspected SROM on arrival yesterday but had negative Actim prom. HUNG on admission was 5.2 SHe was admitted for observation and hydration last night. NST Cat 1. No contractions . She feels good this am. Repeat US this am with MVP of 2.3 cm. HUNG 4.6 She was incidentally found to have low Hgb of 6.7 and recieved IV iron infusion yesterday. Reason For Visit: OBS Physical Exam - Physical Exam Vital Signs: Intake & Output 04/28/19 04/29/19 04/30/19 06:59 06:59 06:59 Weight 93.8 kg - Gynecological Exam Labia: normal Vagina: normal - No fluid in vagina even with having patient cough multiple times. Cervix: normal - Cl/th/high Result Laboratory Results: 04/29/19 00:34 04/28/19 04/29/19 04/29/19 23:05 00:34 00:34 WBC 10.7 H RBC 3.12 L Hgb 6.7 L Hct 20.6 L MCV 66 L MCH 21.4 L MCHC 32.3 RDW 18.2 H Plt Count 241 Seg Neutrophils % 79.7 H Ferritin 7.71 Urine Color YELLOW Urine Appearance CLEAR Urine pH 8.0 Ur Specific [place] 1.011 Urine Protein NEGATIVE Urine Glucose (UA) NEGATIVE Urine Ketones 20 H Urine Blood NEGATIVE Urine Nitrite NEGATIVE Ur Leukocyte Esterase NEGATIVE Urine WBC (Auto) 1 Urine RBC (Auto) 1 Assessment & Plan - Diagnosis (1) Anemia affecting in third trimester Is this a current diagnosis for this admission?: Yes (2) Clear vaginal discharge Is this a current diagnosis for this admission?: Yes - Time Time Spent with patient: 15-24 minutes - Plan Summary Plan Summary: Plan for discharge iwth Twice weekly testing. Sees MFM on Thursday ( 3 days) . WIll come to our office for NST and OB visit iwth recheck of Hgb at that time. May require further Iron Precautions given Return to triage PRN.
--- NOTE | 2019-04-29 15:30 | RADIOLOGY REPORT (SQ) ---
EXAM DESCRIPTION: U/S OB LIMITED COMPLETED DATE/TIME: 04/29/2019 8:26 am REASON FOR STUDY: Repeat AFT COMPARISON: 04/28/2019 TECHNIQUE: Limited transabdominal grayscale ultrasound for evaluation of specific requested obstetri monica parameters. LIMITATIONS: None. FINDINGS: CERVICAL LENGTH: 3.2 cm. Closed. HUNG: 4.6 cm. FHR: 147 beats per minute. PRESENTATION: Cephalic. PLACENTA: Posterior. Grade 1. ANATOMY: Not assessed OTHER: Gestational age of 35 weeks 1 day. IMPRESSION: Oligohydramnios. Measurements as above. Trimester of : Third trimester - 28 weeks to delivery. TECHNICAL DOCUMENTATION: JOB ID: [id number] [employer]- All Rights Reserved Reading location - IP/workstation name: [email or web address]
== END 2019-04-29 11:17 | disposition home or self-care (01) ==
LOC: LC 22:10 → LR 04-29 00:03 → UNDOADMOB 04-29 00:03 → LC 04-29 11:17 → UNDODISOB 04-29 11:17
PROVIDERS: ATTEND Obstetrics & Gynecology
PROC: 4A1HXCZ Monitoring of Products of Conception, Cardiac Rate, External Approach (ICD-10-PCS; principal; 2019-04-28)
DX: O41.03X0 Oligohydramnios, third trimester, not applicable or unspecified (principal); O99.013 Anemia complicating pregnancy, third trimester; O99.323 Drug use complicating pregnancy, third trimester; F12.90 Cannabis use, unspecified, uncomplicated; O47.03 False labor before 37 completed weeks of gestation, third trimester; Z3A.35 35 weeks gestation of pregnancy
CPT/HCPCS: 59025; 36415; 82728; 85025; 81001; 80307; 84112; 76815 ×2; G0480 ×2; J3490 ×2; J1756; 80349

== ENCOUNTER 2019-05-04 12:59 | Outpatient (CLI) | payer MEDICAID ==
[2019-05-04 13:43] LABS: APPEARANCE,URINE CLEAR; BILIRUBIN,URINE NEGATIVE (NEGATIVE); COLOR,URINE YELLOW; GLUCOSE, URINE NEGATIVE (NEGATIVE); KETONES,URINE NEGATIVE (NEGATIVE); LEUKOCYTE ESTERASE,URINE TRACE (NEGATIVE); NITRITE,URINE NEGATIVE (NEGATIVE); PROTEIN,URINE NEGATIVE (NEGATIVE); URINE SPECIFIC GRAVITY 1.008; UROBILINOGEN,URINE NEGATIVE mg/dL (<2.0)
[2019-05-04 13:56] LABS: URINE AMPHETAMINES SCREEN NEGATIVE; URINE BARBITURATES SCREEN NEGATIVE; URINE BENZODIAZEPINES SCREEN NEGATIVE; URINE COCAINE SCREEN NEGATIVE; URINE METHADONE SCREEN NEGATIVE; URINE PHENCYCLIDINE SCREEN NEGATIVE
[2019-05-04 14:06] LABS: URINE MARIJUANA (THC) SCREEN UNCONFIRMED POSITIVE
--- NOTE | 2019-05-04 16:35 | Non Stress Test Report ---
Non Stress Test Datetime Report Generated by CPN: 05/04/2019 16:35 DEMOGRAPHIC EGA NST: 36.1 INDICATION Indication for Study (NST) Other: labor observation MONITORING Monitor Explained: Monitor Explained; Test Explained; Patient Verbalized Understanding Time on Monitor: 05/04/2019 13:17 Time off Monitor: 05/04/2019 14:03 NST Duration: 46 NST INTERVENTIONS NST Interventions: PO Hydration Physician Notified NST: A Lunsford CNM BABY A: [id number] BABY A Movement : Present Contraction Frequency : irregular FHR Baseline : 135 Accelerations : 15X15 Decelerations : None Variability : Moderate 6-25bpm NST Review: Meets Criteria for Reactive NST NST Review and Verified By : YANELI FRAIRE RN NST Results: Reactive NST REPORT Report Trigger: Send Report
== END 2019-05-04 14:30 | disposition home or self-care (01) ==
LOC: LC 12:59
PROVIDERS: ATTEND Obstetrics & Gynecology
PROC: 4A1HXCZ Monitoring of Products of Conception, Cardiac Rate, External Approach (ICD-10-PCS; principal; 2019-05-04)
DX: O47.03 False labor before 37 completed weeks of gestation, third trimester (principal); Z3A.36 36 weeks gestation of pregnancy
CPT/HCPCS: 59025; 80307; 81001

== ENCOUNTER 2019-05-27 20:11 | Outpatient (CLI) | payer MEDICAID ==
[2019-05-27 21:21] LABS: APPEARANCE,URINE CLEAR; BILIRUBIN,URINE NEGATIVE (NEGATIVE); COLOR,URINE YELLOW; GLUCOSE, URINE NEGATIVE (NEGATIVE); KETONES,URINE 20 mg/dL (NEGATIVE); LEUKOCYTE ESTERASE,URINE NEGATIVE (NEGATIVE); NITRITE,URINE NEGATIVE (NEGATIVE); PROTEIN,URINE NEGATIVE (NEGATIVE); URINE SPECIFIC GRAVITY 1.014
[2019-05-27] MEDS ORDERED: HYDROXYZINE PAMOATE 50 MG CAPSULE PO ONE (21:56)
[2019-05-27] MEDS ORDERED: HYDROXYZINE PAMOATE 50 MG CAPSULE ONE (21:57)
[2019-05-27 22:02] LABS: URINE AMPHETAMINES SCREEN NEGATIVE; URINE BARBITURATES SCREEN NEGATIVE; URINE BENZODIAZEPINES SCREEN NEGATIVE; URINE COCAINE SCREEN NEGATIVE; URINE MARIJUANA (THC) SCREEN NEGATIVE; URINE METHADONE SCREEN NEGATIVE; URINE PHENCYCLIDINE SCREEN NEGATIVE
== END 2019-05-27 22:02 | disposition home or self-care (01) ==
LOC: LC 20:11
PROVIDERS: ATTEND Student in an Organized Health Care Education/Training Program
PROC: 4A1HXCZ Monitoring of Products of Conception, Cardiac Rate, External Approach (ICD-10-PCS; principal; 2019-05-27)
DX: O99.283 Endocrine, nutritional and metabolic diseases complicating pregnancy, third trimester (principal); E86.0 Dehydration; Z3A.39 39 weeks gestation of pregnancy
CPT/HCPCS: 59025; 81005; 80307; J3490

== ENCOUNTER 2019-05-28 16:57 | Outpatient (CLI) | payer MEDICAID ==
--- NOTE | 2019-05-28 16:58 | Non Stress Test Report ---
Non Stress Test Datetime Report Generated by CPN: 05/28/2019 16:58 DEMOGRAPHIC EGA NST: 39.3 INDICATION Indication for Study (NST) Other: Ordered by provider URINE RESULTS Urine Protein, NST: Negative Urine Ketones - NST: Positive Urine Glucose - NST: Negative Urine Blood - NST: Negative MONITORING Monitor Explained: Monitor Explained; Test Explained; Patient Verbalized Understanding Time on Monitor: 05/27/2019 20:55 Time off Monitor: 05/27/2019 21:20 NST Duration: 25 NST INTERVENTIONS NST Interventions: PO Hydration Physician Notified NST: Dr. Tiwari BABY A: [id number] BABY A Movement : Present Contraction Frequency : Irregular FHR Baseline : 135 Accelerations : 15X15 Decelerations : None Variability : Moderate 6-25bpm NST Review: Meets Criteria for Reactive NST NST Review and Verified By : John Urbina RN NSGlenis Results: Reactive NST REPORT Report Trigger: Send Report
--- NOTE | 2019-05-28 17:38 | Non Stress Test Report ---
Non Stress Test Datetime Report Generated by CPN: 05/28/2019 17:38 DEMOGRAPHIC Test Number: 4 EGA NST: 39.4 INDICATION Indication for Study (NST) Other: ctxs MONITORING Monitor Explained: Monitor Explained; Test Explained; Patient Verbalized Understanding Time on Monitor: 05/28/2019 17:13 Time off Monitor: 05/28/2019 17:37 NST Duration: 24 NST INTERVENTIONS NST Interventions: None Physician Notified NST: Dr Shi BABY A Movement : Present Contraction Frequency : irregular FHR Baseline : 135 Accelerations : 15X15 Decelerations : None Variability : Moderate 6-25bpm NST Review: Meets Criteria for Reactive NST NST Review and Verified By : TMartin,RN NST Results: Reactive NST REPORT Report Trigger: Send Report
[2019-05-28 17:39] LABS: APPEARANCE,URINE CLEAR; BILIRUBIN,URINE NEGATIVE (NEGATIVE); COLOR,URINE YELLOW; GLUCOSE, URINE NEGATIVE (NEGATIVE); KETONES,URINE 20 mg/dL (NEGATIVE); LEUKOCYTE ESTERASE,URINE NEGATIVE (NEGATIVE); NITRITE,URINE NEGATIVE (NEGATIVE); PROTEIN,URINE NEGATIVE (NEGATIVE); UROBILINOGEN,URINE NEGATIVE mg/dL (<2.0)
[2019-05-28] MEDS ORDERED: OXYCODONE-ACETAMINOPHEN 5-325 MG TABLET PO ONE (17:46)
[2019-05-28] MEDS ORDERED: OXYCODONE-ACETAMINOPHEN 5-325 MG TABLET ONE (17:48)
[2019-05-28 18:04] LABS: URINE AMPHETAMINES SCREEN NEGATIVE; URINE BARBITURATES SCREEN NEGATIVE; URINE BENZODIAZEPINES SCREEN NEGATIVE; URINE COCAINE SCREEN NEGATIVE; URINE MARIJUANA (THC) SCREEN NEGATIVE; URINE METHADONE SCREEN NEGATIVE; URINE PHENCYCLIDINE SCREEN NEGATIVE
== END 2019-05-28 17:54 | disposition home or self-care (01) ==
LOC: LC 16:57
PROVIDERS: ATTEND Obstetrics & Gynecology
PROC: 4A1HXCZ Monitoring of Products of Conception, Cardiac Rate, External Approach (ICD-10-PCS; principal; 2019-05-28)
DX: O47.1 False labor at or after 37 completed weeks of gestation (principal); Z3A.39 39 weeks gestation of pregnancy
CPT/HCPCS: 59025; 80307; 81005

== ENCOUNTER 2019-05-29 08:34 | Inpatient (IN) | payer MEDICAID ==
[2019-05-29 08:59] LABS: APPEARANCE,URINE CLEAR; BILIRUBIN,URINE NEGATIVE (NEGATIVE); COLOR,URINE STRAW; GLUCOSE, URINE NEGATIVE (NEGATIVE); KETONES,URINE NEGATIVE (NEGATIVE); LEUKOCYTE ESTERASE,URINE NEGATIVE (NEGATIVE); NITRITE,URINE NEGATIVE (NEGATIVE); PROTEIN,URINE NEGATIVE (NEGATIVE); URINE SPECIFIC GRAVITY 1.006; UROBILINOGEN,URINE NEGATIVE mg/dL (<2.0)
[2019-05-29] MEDS ORDERED: RINGERS SOLUTION,LACTATED 1,000 ML IV ONE (09:02)
[2019-05-29] MEDS ORDERED: RINGERS SOLUTION,LACTATED 1,000 ML IV PRN (09:02)
[2019-05-29 09:26] LABS: URINE AMPHETAMINES SCREEN NEGATIVE; URINE BARBITURATES SCREEN NEGATIVE; URINE BENZODIAZEPINES SCREEN NEGATIVE; URINE COCAINE SCREEN NEGATIVE; URINE MARIJUANA (THC) SCREEN NEGATIVE; URINE PHENCYCLIDINE SCREEN NEGATIVE
[2019-05-29 09:30] LABS: URINE METHADONE SCREEN NEGATIVE
[2019-05-29 09:39] LABS: ABSOLUTE EOSINOPHILS # (AUTO) 0.1 10^3/uL (0.0-0.6); ABSOLUTE LYMPHOCYTES (AUTO) 1.7 10^3/uL (0.5-4.7); ABSOLUTE MONOCYTES (AUTO) 0.3 10^3/uL (0.1-1.4); ABSOLUTE NEUT (AUTO) 3.7 10^3/uL (1.7-8.2); BASOPHILS % (AUTO) 0.4 % (0-2); EOSINOPHILS % (AUTO) 1.1 % (0-6); HEMATOCRIT 23.8 % (36.0-47.0); LYMPHOCYTES % (AUTO) 29.4 % (13-45); MEAN CORPUSCULAR HEMOGLOBIN 20.4 pg (27.0-33.4); MEAN CORPUSCULAR HGB CONC 30.9 g/dL (32.0-36.0); MEAN CORPUSCULAR VOLUME 66 fl (80-97); MONOCYTES % (AUTO) 5.1 % (3-13); PLATELET COUNT 261 10^3/uL (150-450); RED BLOOD COUNT 3.61 10^6/uL (3.72-5.28); RED CELL DISTRIBUTION WIDTH 19.1 % (11.5-14.0); TOTAL CELLS COUNTED % (AUTO) 100 %; WHITE BLOOD COUNT 5.8 10^3/uL (4.0-10.5)
[2019-05-29 09:41] LABS: HEMOGLOBIN 7.4 g/dL (12.0-15.5)
[2019-05-29] MEDS ORDERED: OXYTOCIN 10 UNIT/ML VIAL ONE (09:41)
[2019-05-29] MEDS ORDERED: LIDOCAINE 1% INJ-PF (10 MG/ML) 30 ML SDV ONE (09:42)
[2019-05-29] MEDS ORDERED: MISOPROSTOL 0.2 MG TABLET ONE (09:42)
[2019-05-29] MEDS ORDERED: OXYTOCIN/NORMAL SALINE 20 UNIT/1,000 ML RTUINJ ONE (09:42)
[2019-05-29] MEDS ORDERED: EPHEDRINE SULFATE INJ 50 MG/1 ML AMPULE ONE (09:47)
[2019-05-29] MEDS ORDERED: BUPIVACAINE HCL 0.25 % INJ/PF (2.5 MG/1 ML) 30 ML VIAL ONE (09:48)
[2019-05-29] MEDS ORDERED: FENTANYL/BUPIVACAINE/NS/PF 300 MCG/150 ML RTUINJ EPI ONE (09:48)
--- NOTE | 2019-05-29 10:39 | Admission Physical ---
Datetime Report Generated by CPN: 05/29/2019 10:39 CURRENT ADMISSION Chief Complaint: Uterine Contractions Chief Complaint Other: oligo Indication for Induction: Not Applicable Admit Impression : Active Labor Admit Plan: Admit to Unit ALLERGIES Medication Allergies: No Medication Allergies: No Known Allergies (05/29/2019) Latex: No Latex Allergies OBSTETRICAL HISTORY EDC: 05/31/2019 00:00 : 3 Para: 1 Term: 1 : 0 SAB: 0 IAB: 0 Ectopic: 0 Livin Cesareans: 0 VBACs: 0 Multiple Births: 0 Gestational Diabetes: No Rh Sensitization: No Incompetent Cervix: No ARNULFO: No Infertility: No ART Treatment: No Uterine Anomaly: No IUGR: No Hx Previous C/S: No Macrosomia: No Hx Loss/Stillborn: No PIH: No Hx : No Placenta Previa/Abruption: No Depression/PP Depression: No PTL/PROM: No Post Hemorrhage: No Current Procedures: Ultrasound Obstetrical History Comments: G1: 2018 41 wks 8lbs 5 oz male vaginal G2: 6wks SAB SEE RECORDS Alcohol: No Marijuana : Yes Cocaine: No Other Illicit Drugs: No Cigarettes: Former Smoker. 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 Heart Disease: No Hosp/Surgery: Yes Autoimmune Disorder: No Anesthetic Complications: No Kidney Disease: No Abnormal Pap Smear: No Neuro/Epilepsy: No Psychiatric Disorders: No Other Medical Diseases: Yes Hepatitis/Liver Disease: No Significant Family History: No Varicosities/Phlebitis: No Trauma/Violence : No Thyroid Dysfunction: No Medical History Comments: anemia- with iron infusion, arm surgery, childbirth INFECTIOUS HISTORY Gonorrhea: No Genital Herpes: No Chlamydia: Yes Tuberculosis: No Syphilis: No Hepatitis: No HIV/AIDS Exposure: No Rash or Viral Illness: No HPV: No Infectious History Comments: chlamydia patient and partner treated 12/21/18 PHYSICAL EXAM General: Normal HEENT: Normal Neurologic: Normal Thyroid: Normal Heart: Normal Lungs: Normal Breast: Deferred Back: Normal Abdomen: Normal Genitourinary Exam: Normal Extremities: Normal DTRs: Normal Pelvic Type: Adequate Vital Signs: Reviewed VAGINAL EXAM Dilatation: 5 Effacement: 60 Station: 0 MEMBRANES Pooling: Negative Membranes: Intact FETUS A EGA: 39.5 Monitoring: External US FHR- Baseline: 130 Variability: Moderate 6-25bpm Decelerations: None FHR Category: Category I Presentation: Vertex Admit Comment: admit for iv fluids and possibly venofer PLANS FOR LABOR AND DELIVERY Labor and Delivery: None Pain Management: Epidural Feeding Preference: Formula Benefit of Breast Feed Discussed: Yes Circumcision: N/A INFORMED CONSENT Signature: with User ID: [email or web address]
[2019-05-29] MEDS ORDERED: GLYCERIN/WITCH HAZEL LEAF 1 EACH MED..WIPE TP PRN (15:28)
[2019-05-29] MEDS ORDERED: PROMETHAZINE HCL INJ 25 MG/1 ML VIAL IV PRN (15:28)
[2019-05-29] MEDS ORDERED: ACETAMINOPHEN WITH CODEINE #3 TABLET PO PRN ×2 (15:28)
[2019-05-29] MEDS ORDERED: PROMETHAZINE HCL 25 MG SUPP.RECT PR PRN (15:28)
[2019-05-29] MEDS ORDERED: OXYTOCIN/NORMAL SALINE 20 UNIT/1,000 ML RTUINJ IV PRN (15:28)
[2019-05-29] MEDS ORDERED: PSEUDOEPHEDRINE HCL 30 MG TABLET PO PRN (15:28)
[2019-05-29] MEDS ORDERED: PROMETHAZINE HCL 25 MG TABLET PO PRN (15:28)
[2019-05-29] MEDS ORDERED: MEASLES,MUMPS&RUBELLA VACC/PF 0.5 ML VIAL SUBCUT PRN (15:28)
[2019-05-29] MEDS ORDERED: ZOLPIDEM TARTRATE 5 MG TABLET PO PRN (15:28)
[2019-05-29] MEDS ORDERED: ACETAMINOPHEN 650 MG SUPP.RECT PR PRN (15:28)
[2019-05-29] MEDS ORDERED: DIBUCAINE 1% OINTMENT 28 GM TP PRN (15:28)
[2019-05-29] MEDS ORDERED: BENZOCAINE/MENTHOL AEROSOL SPRAY 56 ML TOP PRN (15:28)
[2019-05-29] MEDS ORDERED: NA PHOS,M-B/NA PHOS,DI-BA (ADULT) 133 ML ENEMA PR PRN (15:28)
[2019-05-29] MEDS ORDERED: MAGNESIUM HYDROXIDE SUSP 30 ML UDCUP PO PRN (15:28)
[2019-05-29] MEDS ORDERED: DIPHENHYDRAMINE HCL 25 MG CAPSULE PO PRN (15:28)
[2019-05-29] MEDS ORDERED: DIPH/PERTUSS(ACELL)/TETANUS VAC/PF 0.5 ML SYR (>=10YO) IM PRN (15:28)
--- NOTE | 2019-05-29 16:00 | Warning Signs in Babies ---
VOD Warning Signs Datetime Report Generated by N: 05/29/2019 16:00 VOD#608 -Warning Signs in Babies: Viewed with Parent(s)/Family (05/29/2019 15:35:Melodie Villanueva RN)
--- NOTE | 2019-05-29 18:05 | Delivery Summary ---
Del Sum A-C Datetime Report Generated by CPN: 05/29/2019 18:05 DELIVERY PERSONNEL DELIVERY PERSONNEL: [id number] Delivery Doctor:: Burke Ly MD Labor and Delivery Nurse:: Melodie Villanueva RNouter diameter grinder tool Nurse:: Nya Sonjuan, LIDYA MATERNAL INFORMATION Delivery Anesthesia: Epidural Medications After Delivery: Pitocin Drip 20 Units/1000ml NSS Meds After Delivery Comment: pitocin 20 units in 1000mL nss Estimated Blood Loss (ml): 250 Delivery QBL: 250 Maternal Complications: None LABOR SUMMARY EDC: 05/31/2019 00:00 No. Babies in Womb: 1 Attempted: No Labor Anesthesia: Epidural LABOR INFORMATION Reason for Induction: Not Applicable Onset of Labor: 05/29/2019 08:58 Complete Dilatation: 05/29/2019 15:10 Oxytocin: N/A Group B Beta Strep: negative Steroids Given: None Reason Steroids Not Administered: Not Applicable MEMBRANES Membranes Rupture Method: Artificial Rupture of Membranes: 05/29/2019 10:43 Length of Rupture (hr): 4.57 Amniotic Fluid Color: Clear Amniotic Fluid Amount: Scant Amniotic Fluid Odor: Normal STAGES OF LABOR Stage 1 hr: 6 Stage 1 min: 12 Stage 2 hr: 0 Stage 2 min: 7 Stage 3 hr: 0 Stage 3 min: 6 Total Time in Labor hr: 6 Total Time in Labor min: 25 VAGINAL DELIVERY Episiotomy: None Laceration #1: None Laceration Extension #1: N/A Laceration Repair: Not Applicable Sponge Count Correct: Yes Sharps Count Correct: Yes CSECTION DELIVERY Primary Indication: N/A Secondary Indication: N/A CSection Incidence: N/A Labor: N/A Elective: N/A CSection Incision: N/A BABY A INFORMATION Infant Delivery Date/Time: 05/29/2019 15:17 Method of Delivery: Vaginal Nurse Controlled Delivery: No Born in Route : No : N/A Forceps: N/A Vacuum Extraction: N/A Shoulder Dystocia : No PRESENTATION/POSITION BABY A Presentation: Cephalic Cephalic Presentation: Vertex Vertex Position: Occipital Anterior Breech Presentation: N/A PLACENTA INFORMATION BABY A Placenta Delivery Time : 05/29/2019 15:23 Placenta Method of Delivery: Spontaneous Placenta Status: Delivered (Annotations: Data stored by [facility] on behalf of user) SCORES BABY A Heart Rate 1 min: >100 bpm Resp Effort 1 min: Good Cry Reflex Irritability 1 min: Cough or Sneeze or Pulls Away Muscle Tone 1 min: Active Motion Color 1 min: Blue/Pale Resuscitation Effort 1 min: Tactile Stimulation SCORE 1 MIN: 8 Heart Rate 5 min: >100 bpm Resp Effort 5 min: Good Cry Reflex Irritability 5 min: Cough or Sneeze or Pulls Away Muscle Tone 5 min: Active Motion Color 5 min: Body [place], Extremities Blue Resuscitation Effort 5 min: N/A SCORE 5 MIN: 9 INFORMATION BABY A Gestational Age at Delivery: 39.5 Gestational Status: Full Term- 39- 40.6 Weeks Outcome : Stillborn Infant Condition : Stable Sex: Female IDENTIFICATION BABY A Infant Verification Date/Time: 05/29/2019 15:33 ID Band Number: [id number] Mother's Name Verified: Yes RN Verifying : B Baidy RN Additional Verifying Personnel: Betsy Lezmaage RN WEIGHT/LENGTH BABY A Birthweight (gm): 3207 Infant Weight (lb): 7 Infant Weight (oz): 1 Infant Length (in): 21.50 Length (cm): 54.61 CORD INFORMATION BABY A No. Cord Vessels: 3 Nuchal Cord : N/A Cord Blood Taken: Yes-For Eval (Mom's Blood Type - or O+) Suction: None ASSESSMENT BABY A Infant Complications: None Physical Findings at Delivery: Within Normal Limits Respirations: Appears Normal Dairy Nutrition Specialist/ALS Called : No Care By: B Baidy RN Transferred To: Remains with Mother BABY B INFORMATION : N/A SIGNATURES Signature: with User ID: [email or web address]
[2019-05-29] MEDS: DOCUSATE SODIUM 100 MG CAPSULE PO SCH (18:45)
[2019-05-29] MEDS: FERROUS SULFATE 325 MG TABLET PO SCH (18:45)
[2019-05-29] MEDS: IBUPROFEN 800 MG TABLET PO SCH (21:02)
[2019-05-29] MEDS: FAMOTIDINE 20 MG TABLET PO SCH (21:07)
[2019-05-29] MEDS ORDERED: OXYCODONE-ACETAMINOPHEN 5-325 MG TABLET PO PRN (23:44)
[2019-05-29] MEDS: OXYCODONE-ACETAMINOPHEN 5-325 MG TABLET PO PRN (23:47)
[2019-05-30] MEDS: IBUPROFEN 800 MG TABLET PO SCH ×3 (05:18→22:04)
[2019-05-30 06:54] LABS: HEMATOCRIT 21.8 % (36.0-47.0); MEAN CORPUSCULAR HEMOGLOBIN 20.6 pg (27.0-33.4); MEAN CORPUSCULAR HGB CONC 31.8 g/dL (32.0-36.0); MEAN CORPUSCULAR VOLUME 65 fl (80-97); PLATELET COUNT 238 10^3/uL (150-450); RED BLOOD COUNT 3.37 10^6/uL (3.72-5.28); RED CELL DISTRIBUTION WIDTH 18.5 % (11.5-14.0); WHITE BLOOD COUNT 8.1 10^3/uL (4.0-10.5)
[2019-05-30 08:02] LABS: HEMOGLOBIN 6.9 g/dL (12.0-15.5)
[2019-05-30] MEDS ORDERED: IRON SUCROSE COMPLEX INJ/PF 100 MG/5 ML SDV IV ONE (09:15)
--- NOTE | 2019-05-30 09:20 | PDOC PROGRESS REPORT ---
Subjective-OB Progress Note for:: 05/30/19 - PP Day #1, doing well, Hx of anemia, Pt denies dizziness or SOB w/ ambulation. O+, rubella immune, bottlefeeding. UOB voiding Physical Exam (OB) Vital Signs: Temp Pulse Resp BP Pulse Ox 97.6 F 68 20 123/76 100 05/30/19 08:13 05/30/19 08:13 05/30/19 08:13 05/30/19 08:13 05/30/19 08:13 Intake & Output 05/29/19 05/30/19 05/31/19 06:59 06:59 06:59 Weight 96.3 kg - General General Appearance: Appears well, Alert In distress: None - PIH/Pre-Eclampsia Headache: Present Epigastric Pain: No Visual Changes: No - Lochia Lochia Amount: Small 10-25 ml Lochia Color: Rubra/Red - Abdomen Description: Tender, Soft Hernia Present: No Fundal Description: Firm, Midline Fundal Height: u/u - u/2 - Respiratory Respiratory Status: No respiratory distress - Abdominal Distension: No distension Tenderness: Nontender - Genitourinary Genitourinary Note: voiding - Extremities Upper extremity: Normal inspection Lower extremities: Normal inspection - Neurological Cognition: Normal Orientation: AAOx4 - Psychological Associated symptoms: Normal affect, Normal mood - Skin Skin Temperature: Warm Skin Moisture: Dry Objective-Diagnostic Laboratory: 05/30/19 06:24 05/29/19 05/29/19 05/30/19 09:16 09:16 06:24 WBC 5.8 8.1 RBC 3.61 L 3.37 L Hgb 7.4 L 6.9 L Hct 23.8 L 21.8 L MCV 66 L 65 L MCH 20.4 L 20.6 L MCHC 30.9 L 31.8 L RDW 19.1 H 18.5 H Plt Count 261 238 Seg Neutrophils % 64.0 Blood Type O POSITIVE Antibody Screen NEGATIVE Assessment and Plan(PN) - Assessment and Plan (1) (normal spontaneous vaginal delivery) Is this a current diagnosis for this admission?: Yes (2) Anemia affecting in third trimester Is this a current diagnosis for this admission?: Yes Plan:: Will give Pt IV iron today, iron rich foods discussed. Ambulation w/ caution discussed. Routine PP orders - Time Spent with Patient Time with patient: Less than 15 minutes Medications reviewed and adjusted accordingly: Yes - Disposition Anticipated Discharge: Home Within: within 24 hours
[2019-05-30] MEDS: PRENATAL VITAMIN W DHA CAPSULE PO SCH (10:06)
[2019-05-30] MEDS: FERROUS SULFATE 325 MG TABLET PO SCH ×2 (10:06→17:58)
[2019-05-30] MEDS: DOCUSATE SODIUM 100 MG CAPSULE PO SCH ×2 (10:06→17:58)
[2019-05-30] MEDS: SENNOSIDES/DOCUSATE 8.6-50 MG 1 EACH TABLET PO SCH (10:06)
[2019-05-30] MEDS: FAMOTIDINE 20 MG TABLET PO SCH ×2 (10:31→22:04)
[2019-05-30] MEDS: OXYCODONE-ACETAMINOPHEN 5-325 MG TABLET PO PRN (17:58)
[2019-05-30] MEDS ORDERED: FAMOTIDINE 20 MG TABLET ONE (21:31)
[2019-05-31] MEDS: IBUPROFEN 800 MG TABLET PO SCH (05:30)
[2019-05-31 07:51] VITALS: BP 150/73
--- NOTE | 2019-05-31 10:14 | PDOC DISCHARGE SUMMARY ---
Impression - Admit/DC Date/PCP Admission Date/Primary Care Provider: 05/29/19 09:05 BRIJESH PEÑA MD Discharge Date: 05/31/19 - Discharge Diagnosis (1) Active labor at term Is this a current diagnosis for this admission?: Yes (2) (normal spontaneous vaginal delivery) Is this a current diagnosis for this admission?: Yes (3) Anemia affecting in third trimester Is this a current diagnosis for this admission?: Yes - Additional Information Discharge Diet: Regular Discharge Activity: Balance Activity w/Rest, Pelvic Rest Referrals: [facility] [Provider Group] Prescriptions: Ibuprofen [Motrin 800 mg Tablet] 800 mg PO Q8HP PRN #60 tablet PRN Reason: No122/Iron/Folic Acid [ Multi Tablet] 1 tab PO DAILY #90 Acetaminophen with Codeine [Tylenol #3 Tablet] 1 each PO Q4HP PRN #10 tablet PRN Reason: Home Medications: Iron 18 mg PO DAILY 05/28/19 Acetaminophen with Codeine [Tylenol #3 Tablet] 1 each PO Q4HP PRN #10 tablet 05/31/19 Ibuprofen [Motrin 800 mg Tablet] 800 mg PO Q8HP PRN #60 tablet 05/31/19 No122/Iron/Folic Acid [ Multi Tablet] 1 tab PO DAILY #90 05/31/19 HPI Gestational Age: 39+5 Reason(s) for Admission: Onset of Labor Procedures: NST Intrapartum Procedure(s): Spontaneous Vaginal Delivery Results Laboratory Results: WBC 8.1 10^3/uL (4.0-10.5) 05/30/19 06:24 RBC 3.37 10^6/uL (3.72-5.28) L 05/30/19 06:24 Hgb 6.9 g/dL (12.0-15.5) L 05/30/19 06:24 Hct 21.8 % (36.0-47.0) L 05/30/19 06:24 MCV 65 fl (80-97) L 05/30/19 06:24 MCH 20.6 pg (27.0-33.4) L 05/30/19 06:24 MCHC 31.8 g/dL (32.0-36.0) L 05/30/19 06:24 RDW 18.5 % (11.5-14.0) H 05/30/19 06:24 Plt Count 238 10^3/uL (150-450) 05/30/19 06:24 Lymph % (Auto) 29.4 % (13-45) 05/29/19 09:16 [place] % (Auto) 5.1 % (3-13) 05/29/19 09:16 Eos % (Auto) 1.1 % (0-6) 05/29/19 09:16 Baso % (Auto) 0.4 % (0-2) 05/29/19 09:16 Absolute Neuts (auto) 3.7 10^3/uL (1.7-8.2) 05/29/19 09:16 Absolute Lymphs (auto) 1.7 10^3/uL (0.5-4.7) 05/29/19 09:16 Absolute Monos (auto) 0.3 10^3/uL (0.1-1.4) 05/29/19 09:16 Absolute Eos (auto) 0.1 10^3/uL (0.0-0.6) 05/29/19 09:16 Absolute Basos (auto) 0.0 10^3/uL (0.0-0.2) 05/29/19 09:16 Seg Neutrophils % 64.0 % (42-78) 05/29/19 09:16 Urine Color STRAW 05/29/19 07:41 Urine Appearance CLEAR 05/29/19 07:41 Urine pH 8.0 (5.0-9.0) 05/29/19 07:41 Ur Specific [place] 1.006 05/29/19 07:41 Urine Protein NEGATIVE mg/dL (NEGATIVE) 05/29/19 07:41 Urine Glucose (UA) NEGATIVE mg/dL (NEGATIVE) 05/29/19 07:41 Urine Ketones NEGATIVE mg/dL (NEGATIVE) 05/29/19 07:41 Urine Blood NEGATIVE (NEGATIVE) 05/29/19 07:41 Urine Nitrite NEGATIVE (NEGATIVE) 05/29/19 07:41 Urine Bilirubin NEGATIVE (NEGATIVE) 05/29/19 07:41 Urine Urobilinogen NEGATIVE mg/dL (<2.0) 05/29/19 07:41 Ur Leukocyte Esterase NEGATIVE (NEGATIVE) 05/29/19 07:41 Urine Ascorbic Acid NEGATIVE (NEGATIVE) 05/29/19 07:41 Urine Opiates Screen NEGATIVE 05/29/19 07:41 Urine Methadone Screen NEGATIVE 05/29/19 07:41 Ur Barbiturates Screen NEGATIVE 05/29/19 07:41 Ur Phencyclidine Scrn NEGATIVE 05/29/19 07:41 Ur Amphetamines Screen NEGATIVE 05/29/19 07:41 U Benzodiazepines Scrn NEGATIVE 05/29/19 07:41 Urine Cocaine Screen NEGATIVE 05/29/19 07:41 U Marijuana (THC) Screen NEGATIVE 05/29/19 07:41 RPR NONREACTIVE (NONREACTIVE) 05/29/19 09:16 Blood Type O POSITIVE 05/29/19 09:16 Antibody Screen NEGATIVE 05/29/19 09:16 Plan Plan of Treatment: follow up in 4 weeks at [facility] for post check
[2019-05-31] MEDS: FAMOTIDINE 20 MG TABLET PO SCH (10:19)
[2019-05-31] MEDS: PRENATAL VITAMIN W DHA CAPSULE PO SCH (10:19)
[2019-05-31] MEDS: FERROUS SULFATE 325 MG TABLET PO SCH (10:19)
[2019-05-31] MEDS: DOCUSATE SODIUM 100 MG CAPSULE PO SCH (10:19)
[2019-05-31] MEDS: SENNOSIDES/DOCUSATE 8.6-50 MG 1 EACH TABLET PO SCH (10:19)
== END 2019-05-31 11:53 | disposition home or self-care (01) | DRG 807 ==
LOC: LC 08:34 → LR 09:05 → 2S 18:10
PROVIDERS: ADMIT Obstetrics & Gynecology; ATTEND Obstetrics & Gynecology
PROC: 10E0XZZ Delivery of Products of Conception, External Approach (ICD-10-PCS; principal; 2019-05-29)
DX: O41.03X0 Oligohydramnios, third trimester, not applicable or unspecified (principal); Z37.0 Single live birth; O99.02 Anemia complicating childbirth; D64.9 Anemia, unspecified; Z3A.39 39 weeks gestation of pregnancy; Z87.891 Personal history of nicotine dependence; Z86.19 Personal history of other infectious and parasitic diseases
CPT/HCPCS: 36415; 80307; 81005; 85025; 85027; 86592; 86850; 86900; 86901; 94760; J1756; J2590; J3010; J3490

== ENCOUNTER 2019-06-07 09:47 | Emergency (ER) | payer MEDICAID ==
[2019-06-07] MEDS ORDERED: LORAZEPAM INJ 2 MG/1 ML VIAL IV ONE ×2 (10:11→10:34)
[2019-06-07] MEDS ORDERED: MAGNESIUM SULFATE/D5W 2 GM/200 ML RTUPB IV ONE (10:13)
[2019-06-07] MEDS: MAGNESIUM SULFATE/D5W 1 GM/100 ML RTUPB IV SCH ×2 (10:15→11:00)
[2019-06-07] MEDS ORDERED: MAGNESIUM SULFATE 4 GM/100 ML RTUPB IV ONE (10:21)
[2019-06-07 10:35] LABS: ABSOLUTE BASOPHILS # (AUTO) 0.1 10^3/uL (0.0-0.2); ABSOLUTE EOSINOPHILS # (AUTO) 0.1 10^3/uL (0.0-0.6); ABSOLUTE LYMPHOCYTES (AUTO) 2.6 10^3/uL (0.5-4.7); ABSOLUTE MONOCYTES (AUTO) 0.6 10^3/uL (0.1-1.4); ABSOLUTE NEUT (AUTO) 9.1 10^3/uL (1.7-8.2); BASOPHILS % (AUTO) 0.5 % (0-2); EOSINOPHILS % (AUTO) 0.6 % (0-6); HEMATOCRIT 30.2 % (36.0-47.0); HEMOGLOBIN 9.1 g/dL (12.0-15.5); LYMPHOCYTES % (AUTO) 20.8 % (13-45); MEAN CORPUSCULAR HEMOGLOBIN 20.3 pg (27.0-33.4); MEAN CORPUSCULAR HGB CONC 30.2 g/dL (32.0-36.0); MEAN CORPUSCULAR VOLUME 67 fl (80-97); PLATELET COUNT 609 10^3/uL (150-450); RED BLOOD COUNT 4.49 10^6/uL (3.72-5.28); RED CELL DISTRIBUTION WIDTH 20.1 % (11.5-14.0); SEGMENTED NEUTROPHILS % (AUTO) 73.1 % (42-78); TOTAL CELLS COUNTED % (AUTO) 100 %; WHITE BLOOD COUNT 12.5 10^3/uL (4.0-10.5)
[2019-06-07] MEDS ORDERED: LABETALOL HCL INJ 20 MG/4 ML DISP.SYRIN IV ONE ×2 (10:46→11:36)
--- NOTE | 2019-06-07 10:57 | ER Document Report ---
ED General - General Chief Complaint: Probable Seizure Stated Complaint: POSSIBLE SEIZURE Time Seen by Provider: 06/07/19 10:19 TRAVEL OUTSIDE OF THE [place] IN LAST 30 DAYS: No - HPI Notes: Patient is a 23-year-old G2, P2 female approximately 2 weeks who presents emergency department for evaluation after a seizure. Sister evidently witnessed a seizure. This information is secondhand from mother and EMS. EMS arrived and found her to be aggravated and altered. She was brought in here today for further evaluation. I was called into the room when the patient was still being triaged, and had seizure activity. Upon my arrival into the room the patient was actively seizing. Ativan 2 mg was ordered. Further history was obtained from [facility] records. - Related Data Allergies/Adverse Reactions: No Known Allergies Allergy (Verified 06/07/19 13:23) Past Medical History - General Information source: Patient - Social History Smoking Status: Never Smoker Family History: Reviewed & Not Pertinent, Other - Grandmother with seizure disorder Patient has suicidal ideation: No Patient has homicidal ideation: No Renal/ Medical History: Denies: Hx Peritoneal Dialysis Review of Systems - Review of Systems -: Yes ROS unobtainable due to patient's medical condition Physical Exam - Vital signs Vitals: Resp BP Pulse Ox 23 H 157/106 H 98 06/07/19 10:05 06/07/19 10:05 06/07/19 10:05 Course - Re-evaluation Re-evalutation: 06/07/19 12:09 This is a 23-year-old female who is just over a week , no history of seizures, who presents to the emergency department for evaluation having seizures. She has had 2 seizures, one prior to arrival and 1 here. She is loaded with magnesium, 6 g IV ordered total. She is given Ativan. Blood pressures remain high. The patient remained agitated and slightly altered, but did slowly calm to a normal mental status. She is able to follow directions. She is still slightly agitated. I did try labetalol to help her blood pressure. She did not have significant improvement. I have now ordered hydralazine. Patient was initially taken over for CT but was too agitated. She was able to tell me that she was having a headache. I ordered her morphine and Zofran to help with that, will reattempt CT. I spoke with Dr. Tiwari at 12:02 PM. We discussed this patient's lab findings. Certainly, these are not convincingly eclampsia, but it remains on the differential given her proximity to her delivery date. I do not see a downside to magnesium therapy at this time. Awaiting further information from Dr. Tiwari in regards to ultimate patient disposition. 06/07/19 13:37 Dr. Tiwari called me back at approximately 1237. She states that after consulting with medicine, they are concerned she will need continuous EEG monitoring, which we do not have available at this facility. They recommend transfer. I had tried multiple times to discuss this with patient's mother, but she has not been back to the bedside. At this point I am seeking out transfer to [facility]. Patient has been stable. Her blood pressure remains elevated, I did order hydralazine but it is been quite some time and it has not yet been administered. Keppra is ordered as a loading dose, as I have suspicion this in fact may not be related to eclampsia. Patient is able to follow commands, but is still drowsy, still slightly confused. 06/07/19 13:[address] Macias, neuro ICU physician at [facility]. We discussed patient's findings. She agrees that eclampsia is low on the list. The patient still is not neurologically at baseline, but she does have a GCS of [address] Macias accepted the patient to a neuro ICU bed. Awaiting bed assignment. 06/07/19 15:36 I am notified by staff that patient will not have a bed at [facility] for some time. She has improved slightly. I am concerned, however, that this patient should be still receiving magnesium. I spoke with Dr. Tiwari. She agrees that magnesium 2 g an hour is indicated in this patient. We discussed the fact that she should be having every hour neuro checks, and we are concerned that her ideal care will not be here in the emergency department. I am waiting her telephone call. 06/07/19 16:40 I was able to contact Dr. Rodriguez, on-call neurology at [facility]. He recommends an MRI of the brain with and without contrast. I was unaware at the time of this conversation that her MRI is currently down. He did recommend another gram of IV Keppra, as well as some 150 mg orally every 12 hours, to start at 2100 tonight. He did accept the patient to a neuro stepdown bed. I was told that there are beds available, I am hopeful that this will happen more rapidly than the neuro ICU bed at [facility]. Dr. Tiwari came down and evaluated the patient. I went back into the room with her, the patient is more drowsy than she was. She is unable to sit up under her own power. Given this information, Dr. Tiwari does not believe it to be appropriate for this patient to receive the magnesium at this time. She recommends holding off until the patient is more awake and alert, and even then only starting at 1 g an hour. Verbal order given to nurse to hold the magnesium, and communication order placed. Patient is stable, yet again drowsy. She has no focal deficits at this time. We will continue to monitor. - Vital Signs Vital signs: Temp Pulse Resp BP Pulse Ox 99.3 F 22 H 116/87 H 100 06/07/19 17:30 06/07/19 17:30 06/07/19 17:28 06/07/19 17:40 - Laboratory Result Diagrams: 06/07/19 09:56 06/07/19 09:56 Laboratory results interpreted by me: 06/07/19 06/07/19 06/07/19 09:56 09:56 11:55 WBC 12.5 H Hgb 9.1 L Hct 30.2 L MCV 67 L MCH 20.3 L MCHC 30.2 L RDW 20.1 H Plt Count 609 H Absolute Neuts (auto) 9.1 H Carbon Dioxide 18 L AST 41 H Alkaline Phosphatase 180 H Urine Blood LARGE H Ur Leukocyte Esterase LARGE H - Diagnostic Test Radiology reviewed: Reports reviewed Radiology results interpreted by me: 06/07/19 13:[address] 06/07/19 10:25 IMPRESSION: NORMAL BRAIN CT WITHOUT CONTRAST. EVIDENCE OF ACUTE STROKE: NO. Critical Care Note - Critical Care Note Total time excluding time spent on procedures (mins): 70 Discharge - Discharge Clinical Impression: Seizures Condition: Stable Disposition: [facility] Admitting Provider: Dr. Macias
[2019-06-07 11:02] LABS: ALBUMIN 3.9 g/dL (3.5-5.0); ALKALINE PHOSPHATASE 180 U/L (38-126); ANION GAP 18 (5-19); ASPARTATE AMINO TRANSFERASE 41 U/L (14-36); BILIRUBIN,DIRECT 0.3 mg/dL (0.0-0.4); BILIRUBIN,TOTAL 0.4 mg/dL (0.2-1.3); BLOOD UREA NITROGEN 9 mg/dL (7-20); CALCIUM 9.4 mg/dL (8.4-10.2); CARBON DIOXIDE 18 mmol/L (22-30); CHLORIDE 104 mmol/L (98-107); GLUCOSE 83 mg/dL (75-110); POTASSIUM 3.8 mmol/L (3.6-5.0); TOTAL PROTEIN 7.8 g/dL (6.3-8.2)
[2019-06-07] MEDS ORDERED: NORMAL SALINE 1000 ML 1,000 ML IV ONE (11:19)
[2019-06-07] MEDS ORDERED: ONDANSETRON HCL INJ/PF 4 MG/2 ML SDV IV ONE (11:44)
[2019-06-07] MEDS ORDERED: MORPHINE SULFATE 10 MG/ML INJ IV ONE (11:44)
[2019-06-07] MEDS ORDERED: HYDRALAZINE HCL INJ/PF 20 MG/1 ML SDV IV ONE (12:03)
[2019-06-07] MEDS ORDERED: LEVETIRACETAM 1000 MG/NACL-ISO 1,000 MG/100 ML RTUPB IV ONE (12:08)
[2019-06-07 12:16] LABS: APPEARANCE,URINE CLEAR; BILIRUBIN,URINE NEGATIVE (NEGATIVE); COLOR,URINE COLORLESS; GLUCOSE, URINE NEGATIVE (NEGATIVE); KETONES,URINE NEGATIVE (NEGATIVE); LEUKOCYTE ESTERASE,URINE LARGE (NEGATIVE); NITRITE,URINE NEGATIVE (NEGATIVE); PROTEIN,URINE NEGATIVE (NEGATIVE); URINE SPECIFIC GRAVITY 1.003; UROBILINOGEN,URINE NEGATIVE mg/dL (<2.0)
[2019-06-07 12:30] LABS: URINE AMPHETAMINES SCREEN NEGATIVE; URINE BARBITURATES SCREEN NEGATIVE; URINE BENZODIAZEPINES SCREEN NEGATIVE; URINE COCAINE SCREEN NEGATIVE; URINE MARIJUANA (THC) SCREEN NEGATIVE; URINE METHADONE SCREEN NEGATIVE; URINE PHENCYCLIDINE SCREEN NEGATIVE
--- NOTE | 2019-06-07 12:35 | RADIOLOGY REPORT (SQ) ---
EXAM DESCRIPTION: CT HEAD WITHOUT COMPLETED DATE/TIME: 06/07/2019 12:18 pm REASON FOR STUDY: seizure COMPARISON: None. TECHNIQUE: Axial images acquired through the brain without intravenous contrast. Images reviewed wi th bone, brain and subdural windows. Additional sagittal and coronal reconstructions were generated. Images stored on PACS. All CT scanners at this facility use dose modulation, iterative reconstruction, and/or weight based d osing when appropriate to reduce radiation dose to as low as reasonably achievable (ALARA). [facility]: Dose Right [facility]: CareDose [facility]: Dose Right [facility]: Teradose 4D [facility]: [employer] RADIATION DOSE: CT Rad equipment meets quality standard of care and radiation dose reduction techniq ues were employed. CTDIvol: 53.2 mGy. DLP: 1017 mGy-cm. mGy. LIMITATIONS: None. FINDINGS: VENTRICLES: Normal size and contour. CEREBRUM: No masses. No hemorrhage. No midline shift. No evidence for acute infarction. Normal gra y/white matter differentiation. No areas of low density in the white matter. CEREBELLUM: No masses. No hemorrhage. No alteration of density. No evidence for acute infarction. EXTRAAXIAL SPACES: No fluid collections. No masses. ORBITS AND GLOBE: No intra- or extraconal masses. Normal contour of globe without masses. CALVARIUM: No fracture. PARANASAL SINUSES: No fluid or mucosal thickening. SOFT TISSUES: No mass or hematoma. OTHER: No other significant finding. IMPRESSION: NORMAL BRAIN CT WITHOUT CONTRAST. EVIDENCE OF ACUTE STROKE: NO. COMMENT: Quality ID # [id number]: Final reports with documentation of one or more dose reduction techniques (e.g., Automated exposure control, adjustment of the mA and/or kV according to patient size, use of iterative reconstruction technique) TECHNICAL DOCUMENTATION: JOB ID: [id number] 2010 [employer]- All Rights Reserved Reading location - IP/workstation name: [email or web address]
[2019-06-07] MEDS ORDERED: MAGNESIUM SULFATE 20 GM/500 ML RTUINJ IV PRN (15:36)
[2019-06-07] MEDS ORDERED: MAGNESIUM SULFATE 20 GM/500 ML RTUINJ IV ONE (16:02)
--- NOTE | 2019-06-07 17:10 | PDOC CONSULTATION ---
Consultation Consult Date: 06/07/19 Attending physician:: CAMRON BAUTISTA Provider Consulted: PRO BREAUX Consult reason:: elevated BPs, possible Ecclampsia, recent on 05/28, Seizures History of Present Illness Admission Date/PCP: 06/07/2019 Patient complains of: current seizure activity History of Present Illness: LISA DA SILVA is a 23 year old female s/p uncomplicated on 05/29/2019. She had a prior uncomplicated in 05/24/2017 at [facility]. She did not have PreE or GHTN with either or delivery. was complicated by positive AFP with normal Materniti 21. Anemia on Iron po during as well as Iron infusions. Chlamydia on 12/21 - good GLADIS. BPs were normal in . 2 elevated BPs in labor while patient was actively laboring that resolved with position change and pain control. She presented to the ER today via EMS due to seizure activity at home. Another witnessed seizure activity was noted in ER by ER provider. Patient was reportedly given ativan which caused cessation of seizure then patient noted to have twitching which could have been another seizure. BPs were elevated on arrival and responded to Labetalol and Hydralazine. She was also given 6 grams magnesium due to recent status. Patient not truly arousable on exam now. Will squeeze bilateral hands but immediately falls back asleep and can not sit on her own accord. Negative protein on UA, and labs negative. Past Medical History LMP: 08/17/2018 Last Pap Smear: 12/07/18 Gynecological Infection: Yes Baby 1 Year: 2,018 Weeks: 41 Delivery: Spontaneous Vaginal Delivery Spontaneous Year: 2,017 Weeks: 6 Baby 3 Year: 2,020 Weeks: 40 Delivery: Spontaneous Vaginal Delivery Social History Information Source: Emergency Med Personnel, [facility] Records Lives with: Family Smoking Status: Never Smoker Electronic Cigarette use?: No Frequency of Alcohol Use: None Hx Recreational Drug Use: No Drugs: None Hx Prescription Drug Abuse: No Family History Family History: Reviewed & Not Pertinent, Other - Grandmother with seizure disorder Parental Family History Reviewed: No Children Family History Reviewed: NA Sibling(s) Family History Reviewed.: NA Medication/Allergy Home Medications: Iron 18 mg PO DAILY 05/28/19 Acetaminophen with Codeine [Tylenol #3 Tablet] 1 each PO Q4HP PRN #10 tablet 05/31/19 Ibuprofen [Motrin 800 mg Tablet] 800 mg PO Q8HP PRN #60 tablet 05/31/19 No122/Iron/Folic Acid [ Multi Tablet] 1 tab PO DAILY #90 05/31/19 Allergies/Adverse Reactions: No Known Allergies Allergy (Verified 06/07/19 13:23) Review of Systems ROS unobtainable: Due to mental status Physical Exam - Physical Exam Vital Signs: Temp Pulse Resp BP Pulse Ox 98.1 F 22 H 167/113 H 100 06/07/19 11:30 06/07/19 13:40 06/07/19 13:30 06/07/19 13:40 Intake & Output 06/06/19 06/07/19 06/08/19 06:59 06:59 06:59 Intake Total 1375 Balance 1375 Weight 91.6 kg General appearance: PRESENT: no acute distress Head exam: PRESENT: atraumatic, normocephalic Cardiovascular exam: PRESENT: tachycardia GI/Abdominal exam: PRESENT: normal bowel sounds, soft, other - unable to assess abdominal exam due to patient not cooperative/obtunded. ABSENT: distended, guarding, mass, organolmegaly, rebound Rectal exam: PRESENT: deferred Extremities exam: PRESENT: full ROM, other - no edema. ABSENT: clubbing, pedal edema Neurological exam: PRESENT: other - no clonus, DTRs difficult to obtain - minimal.. ABSENT: alert Skin exam: PRESENT: dry, intact, warm. ABSENT: cyanosis, rash Result Laboratory Results: 06/07/19 09:56 06/07/19 09:56 06/07/19 06/07/19 06/07/19 09:56 09:56 11:55 WBC 12.5 H RBC 4.49 Hgb 9.1 L Hct 30.2 L MCV 67 L MCH 20.3 L MCHC 30.2 L RDW 20.1 H Plt Count 609 H Seg Neutrophils % 73.1 Sodium 140.1 Potassium 3.8 Chloride 104 Carbon Dioxide 18 L Anion Gap 18 BUN 9 Creatinine 0.67 Est GFR ( Amer) > 60 Glucose 83 Calcium 9.4 Total Bilirubin 0.4 AST 41 H Alkaline Phosphatase 180 H Total Protein 7.8 Albumin 3.9 Urine Color COLORLESS Urine Appearance CLEAR Urine pH 7.0 Ur Specific [place] 1.003 Urine Protein NEGATIVE Urine Glucose (UA) NEGATIVE Urine Ketones NEGATIVE Urine Blood LARGE H Urine Nitrite NEGATIVE Ur Leukocyte Esterase LARGE H Urine WBC (Auto) 57 Urine RBC (Auto) 4 Impressions: Head CT 06/07/19 10:25 IMPRESSION: NORMAL BRAIN CT WITHOUT CONTRAST. EVIDENCE OF ACUTE STROKE: NO. Status: Imported from PACS Assessment & Plan - Diagnosis (1) Seizures Is this a current diagnosis for this admission?: Yes Plan: Possible ecclampsia. However, other than BPs no other parts of picture fit ecclampsia. Family history of seizure disorder Concern for at least 2 [address] seizures and also additional seizure activity reportedly (although milder) in ER. 6 gram load magnesium in case of atypical Ecclampsia since labs are normal. mag level ordered on initial labs upon presentation to eval baseline Mag level and compare to current mag level since patient appears obtunded (not sure if due to meds, postictal state or mag level at this time). Repeat labs ordered. Unable to perform MRI at our facility at this time. CT negative at this time. Spoke with Hospitalist regarding patient - agree with transfer to place with neuro. Dr. Vogel - hospitalist. If both mag levels are normal and taking in to account normal renal function could consider 1gram of magnesium for transfer (even though would typically recommend 2 grams magnesium sulfate). Recommend q4-6 hours [facility] labs, may need mag levels more often depending on neuro status, Needs ugalde to gravity, and needs strict I/O. Maintain total IVF 125ml /hr -150ml/hr seizure precautions. Concern that patient may have atypical Ecclampsia versus possible underlying seizure disorder and patient would greatly benefit from Neurology evaluation and assistance with care. [facility] labs: CMP, CBC, Uric Acid, LDH, (mag level as needed) (2) (normal spontaneous vaginal delivery) Is this a current diagnosis for this admission?: Yes Plan: Recent with no prior h/o GHTN, PreE or HTN. No prior PreE with prior . - Time Time Spent: 30 to 50 Minutes Critical Time spent with patient: 15-24 minutes Medications reviewed and adjusted accordingly: Yes Anticipated discharge: Home, Tertiary Hospital Within: within 24 hours - Inpatient Certification Based on my medical assessment, after consideration of the patient's comorbidities, presenting symptoms, or acuity I expect that the services needed warrant INPATIENT care.: Yes I certify that my determination is in accordance with my understanding of Medicare's requirements for reasonable and necessary INPATIENT services [42 CFR 412.3e].: Yes Medical Necessity: Need Close Monitoring Due to Risk of Patient Decompensation, Risk of Complication if Not Cared For in Hospital, Risk of Diagnosis Which Will Require Inpatient Eval/Care/Monitoring
[2019-06-07 19:03] VITALS: BP 116/87
== END 2019-06-07 17:28 | disposition short-term general hospital (02) ==
LOC: ER 09:47
DX: O99.355 Diseases of the nervous system complicating the puerperium (principal)
CPT/HCPCS: 96376; 99291; 51702; 96375; 96365; 96366; 36415; 83735; 85025; 80076; 80048; 81001; 80307; 70450; J3475 ×3; J0360; J3490; J2270; J2060; J2405; J7030; J1953

== ENCOUNTER 2019-06-10 10:20 | Emergency (ER) | payer MEDICAID ==
--- NOTE | 2019-06-10 10:33 | ER Document Report ---
ED Medical Screen (RME) - General Chief Complaint: Headache Stated Complaint: HEADACHE Time Seen by Provider: 06/10/19 10:25 Mode of Arrival: Wheelchair Information source: Patient Notes: 23-year-old female presented to ED for complaint of severe headache and high blood pressure. She states she was seen here last week and transferred divided for headache and high blood pressure and seizures. She states that was the first time she had ever had her seizure. She states her head felt like it was going to explode then she collapsed and had a seizure and was brought to the emergency room. She states while she was advised and her blood pressure was extremely high. She states she left violent AGAINST MEDICAL ADVICE because they were rude to her. She has not followed up with a doctor since then. She states the headache feels exactly like it did before she had a seizure last week. I have greeted and performed a rapid initial assessment of this patient. A comprehensive ED assessment and evaluation of the patient, analysis of test results and completion of medical decision making process will be conducted by an additional ED providers. TRAVEL OUTSIDE OF THE [place] IN LAST 30 DAYS: No - Related Data Allergies/Adverse Reactions: No Known Allergies Allergy (Verified 06/07/19 13:23) Past Medical History Renal/ Medical History: Denies: Hx Peritoneal Dialysis
[2019-06-10 11:19] LABS: APPEARANCE,URINE SLIGHTLY-CLOUDY; BILIRUBIN,URINE NEGATIVE (NEGATIVE); COLOR,URINE YELLOW; GLUCOSE, URINE NEGATIVE (NEGATIVE); KETONES,URINE NEGATIVE (NEGATIVE); PROTEIN,URINE 30 mg/dL (NEGATIVE); URINE SPECIFIC GRAVITY 1.029
[2019-06-10 11:23] LABS: ABSOLUTE EOSINOPHILS # (AUTO) 0.1 10^3/uL (0.0-0.6); ABSOLUTE LYMPHOCYTES (AUTO) 2.5 10^3/uL (0.5-4.7); ABSOLUTE MONOCYTES (AUTO) 0.5 10^3/uL (0.1-1.4); ABSOLUTE NEUT (AUTO) 5.2 10^3/uL (1.7-8.2); BASOPHILS % (AUTO) 0.2 % (0-2); EOSINOPHILS % (AUTO) 1.7 % (0-6); HEMATOCRIT 28.4 % (36.0-47.0); HEMOGLOBIN 8.8 g/dL (12.0-15.5); LYMPHOCYTES % (AUTO) 30.2 % (13-45); MEAN CORPUSCULAR HGB CONC 30.9 g/dL (32.0-36.0); MEAN CORPUSCULAR VOLUME 68 fl (80-97); PLATELET COUNT 553 10^3/uL (150-450); RED BLOOD COUNT 4.18 10^6/uL (3.72-5.28); RED CELL DISTRIBUTION WIDTH 19.7 % (11.5-14.0); SEGMENTED NEUTROPHILS % (AUTO) 61.9 % (42-78); TOTAL CELLS COUNTED % (AUTO) 100 %; WHITE BLOOD COUNT 8.3 10^3/uL (4.0-10.5)
[2019-06-10 11:48] LABS: ALBUMIN 3.8 g/dL (3.5-5.0); ALKALINE PHOSPHATASE 137 U/L (38-126); ANION GAP 13 (5-19); ASPARTATE AMINO TRANSFERASE 44 U/L (14-36); BILIRUBIN,DIRECT 0.2 mg/dL (0.0-0.4); BILIRUBIN,TOTAL 0.4 mg/dL (0.2-1.3); BLOOD UREA NITROGEN 16 mg/dL (7-20); CALCIUM 9.3 mg/dL (8.4-10.2); CARBON DIOXIDE 23 mmol/L (22-30); CHLORIDE 106 mmol/L (98-107); GLUCOSE 75 mg/dL (75-110); POTASSIUM 4.8 mmol/L (3.6-5.0); TOTAL PROTEIN 7.4 g/dL (6.3-8.2)
[2019-06-10] MEDS ORDERED: NORMAL SALINE 1000 ML 1,000 ML IV ONE ×2 (12:34→14:28)
[2019-06-10] MEDS ORDERED: KETOROLAC TROMETHAMINE INJ/PF 30 MG/1 ML SDV IV ONE (12:34)
--- NOTE | 2019-06-10 12:38 | ER Document Report ---
ED General - General Chief Complaint: Headache Stated Complaint: HEADACHE Time Seen by Provider: 06/10/19 10:25 Primary Care Provider: PRO BREAUX MD [Primary Care Provider] - Follow up as needed Mode of Arrival: Wheelchair TRAVEL OUTSIDE OF THE [place] IN LAST 30 DAYS: No - HPI Notes: Patient is a 23-year-old female who presents emergency department for evaluation of a headache. I saw this patient last week. She was 1 week when she developed seizures. She came here and was hypertensive. She had been started on magnesium. None of her other findings, however, were consistent with eclampsia. She was also loaded with Keppra. Based on these findings she was sent to [facility] for further care. Evidently the patient left there AGAINST MEDICAL ADVICE because they were "rude to her." She is not on any current medications. She states she has had a headache in the front of her head, similar to the headache she had prior to her seizure. She cannot tell me when it started. She states she has been too afraid to take any sort of medications for this headache. She denies any fevers. No difficulty seeing, speaking, swallowing. No difficulty moving arms or legs. She is still breast-feeding. - Related Data Allergies/Adverse Reactions: No Known Allergies Allergy (Verified 06/07/19 13:23) Past Medical History - General Information source: Patient - Social History Smoking Status: Former Smoker Chew tobacco use (# tins/day): No Frequency of alcohol use: None Drug Abuse: Marijuana Family History: Reviewed & Not Pertinent, Other - Grandmother with seizure disorder Patient has suicidal ideation: No Patient has homicidal ideation: No Neurological Medical History: Reports: Hx Seizures - Seizures last week, undiagnosed as to etiology Renal/ Medical History: Denies: Hx Peritoneal Dialysis Review of Systems - Review of Systems Neurological/Psychological: See HPI -: Yes All other systems reviewed and negative Physical Exam - Vital signs Vitals: Temp Pulse Resp BP Pulse Ox 98.1 F 63 20 171/105 H 100 06/10/19 10:36 06/10/19 10:36 06/10/19 10:36 06/10/19 10:36 06/10/19 10:36 - Notes Notes: Is a 23-year-old female who appears her stated age. She is tearful, complaining of pain. Vital signs reviewed, please refer to chart. Head is normocephalic, atraumatic. Pupils equal round, reactive to light. Neck is supple without meningismus. Heart is regular rate and rhythm. Lungs are clear to auscultation bilaterally. Abdomen is soft, nontender, normoactive bowel sounds throughout. Extremities without cyanosis, clubbing. Posterior calves are nontender. Peripheral pulses are equal. Skin is warm and dry. Patient is awake, alert, oriented x3. Cranial nerves II - XII are grossly intact without focal neurological deficits. Strength is plus 5 out of 5 bilateral upper and lower extremities. Sensation is intact. Reflexes symmetrical. Intact [id number], rapid alternating movements, [id number]. Course - Re-evaluation Re-evalutation: 06/10/19 12:37 Patient presents to the emergency department for evaluation. I did take care of this patient when she presented last week with elevated blood pressures and seizure activity. She is not had any seizure activity today. Her neurological exam is normal. She had a normal CT. In short, this patient does need an MRI and an EEG, but she has not had any further seizure activity. Her laboratory investigation showed a positive serum beta, but this is likely because she is only 10 days . She has not been sexually active since giving . We will give the patient fluids, Toradol. Will attempt to contact neurology for possible outpatient follow-up. Patient is stable at this time, we will continue to monitor. 06/10/19 17:20 Patient's blood pressure continued to be elevated, she continued to complain of a headache. She was given Tylenol, clonidine. Her pain improved somewhat. I spoke with Dr. Bloom, on-call neurologist from [facility]. We talked at length about this patient. He recommends Keppra 500 mg twice daily, and a CT venogram of the head to rule out cavernous sinus thrombosis. I spoke with Dr. Acevedo, on-call for [facility]. She recommended hydralazine to improve the pa emily's blood pressure, and starting her on Procardia. The patient's headache improved significantly after the hydralazine. Her CTA was unremarkable. Patient was given first dose of Keppra here. I will write a prescription for Keppra and Procardia. She is to follow-up with neurology in [place]. She is to return to the ED with worsening or new concerning symptoms of any sort. - Vital Signs Vital signs: Temp Pulse Resp BP Pulse Ox 98.2 F 63 16 136/76 H 100 06/10/19 15:43 06/10/19 16:26 06/10/19 16:26 06/10/19 16:26 06/10/19 16:26 - Laboratory Result Diagrams: 06/10/19 10:55 06/10/19 10:55 Laboratory results interpreted by me: 06/10/19 06/10/19 06/10/19 10:55 10:55 10:55 Hgb 8.8 L Hct 28.4 L MCV 68 L MCH 21.0 L MCHC 30.9 L RDW 19.7 H Plt Count 553 H AST 44 H Alkaline Phosphatase 137 H Serum HCG, Qual POSITIVE H Urine Protein Urine Blood Urine Urobilinogen Leukocyte Esterase Rfl 06/10/19 10:55 Hgb Hct MCV MCH MCHC RDW Plt Count AST Alkaline Phosphatase Serum HCG, Qual Urine Protein 30 H Urine Blood MODERATE H Urine Urobilinogen 2.0 H Leukocyte Esterase Rfl MODERATE H - Diagnostic Test Radiology reviewed: Reports reviewed Radiology results interpreted by me: 06/10/19 17:22 Head CTA 06/10/19 15:50 IMPRESSION: There is no evidence of cavernous sinus thrombosis. There is no stenosis or aneurysm of the vessels of the [place]. Discharge - Discharge Clinical Impression: Seizures Headache Qualifiers: Headache type: unspecified Headache chronicity pattern: acute headache Intractability: not intractable Qualified Code(s): R51 - Headache Hypertension Qualifiers: Hypertension type: unspecified Qualified Code(s): I10 - Essential (primary) hypertension Condition: Stable Disposition: HOME, SELF-CARE Instructions: Headache ([facility]), New Seizure ([facility]) Additional Instructions: Absolutely no driving until seen and cleared by neurology to do so. Take medications as prescribed, starting tomorrow. You need to follow-up with the [facility] clinic for a blood pressure check next week. Follow-up with neurology in [place]. The phone number is [phone]. Explain you have new seizures, and need a neurology appointment as referred through the emergency department. If you have any further seizure activity, or you develop new or concerning symptoms of any sort, return immediately to the emergency department for evaluation. Referrals: PRO BREAUX MD [Primary Care Provider] - Follow up as needed
[2019-06-10] MEDS ORDERED: MORPHINE SULFATE 10 MG/ML INJ IV ONE (13:57)
[2019-06-10] MEDS ORDERED: ONDANSETRON HCL INJ/PF 4 MG/2 ML SDV IV ONE (13:57)
[2019-06-10] MEDS ORDERED: ACETAMINOPHEN 325 MG TABLET PO ONE (14:29)
[2019-06-10] MEDS ORDERED: CLONIDINE HCL 0.1 MG TABLET PO ONE (14:34)
[2019-06-10] MEDS ORDERED: HYDRALAZINE HCL INJ/PF 20 MG/1 ML SDV IV ONE (15:34)
[2019-06-10] MEDS ORDERED: LEVETIRACETAM 500 MG TABLET PO ONE (17:16)
--- NOTE | 2019-06-10 17:16 | RADIOLOGY REPORT (SQ) ---
EXAM DESCRIPTION: CTA HEAD COMPLETED DATE/TIME: 06/10/2019 4:48 pm REASON FOR STUDY: venogram to eval for cavernous sinus thrombosis COMPARISON: None. TECHNIQUE: Post IV contrast scanning, thin section axial imaging through the brain to evaluate the a rterial structures. Source and MIP images are saved and reviewed on PACS. Advanced 3D imaging as volume-rendering, MIPs, SSD performed? yes All CT scanners at this facility use dose modulation, iterative reconstruction, and/or weight based d osing when appropriate to reduce radiation dose to as low as reasonably achievable (ALARA). [facility]: Dose Right [facility]: CareDose [facility]: Dose Right [facility]: Teradose 4D [facility]: [email or web address] CONTRAST TYPE AND DOSE: contrast/concentration: Isovue 350.00 mg/ml; Total Contrast Delivered: 70.0 ml; Total Saline Delivered: 75.0 ml RENAL FUNCTION: None required. The patient is less than 50 years old. LIMITATIONS: None. FINDINGS: [place]: The anterior, middle, posterior cerebral arteries are all patent. No ev idence of aneurysm or focal stenosis. POSTERIOR CIRCULATION: The distal vertebral arteries are patent as is the basilar artery. No aneurysm . BRAIN: No gross enhancing lesions as visualized. The superior cerebral hemispheres are not included in the field of view. BONES: Intact as visualized. SINUSES: No fluid or mucosal thickening. OTHER: There is no enlargement of the cavernous sinus on either side. There is no evidence of cavern ous sinus thrombosis. IMPRESSION: There is no evidence of cavernous sinus thrombosis. There is no stenosis or aneurysm of the vessels of the [place]. TECHNICAL DOCUMENTATION: JOB ID: [id number] Quality ID # [id number]: Final reports with documentation of one or more dose reduction techniques (e.g., Au tomated exposure control, adjustment of the mA and/or kV according to patient size, use of iterative reconstruction technique) 2010 [employer]- All Rights Reserved Reading location - IP/workstation name: [email or web address]
[2019-06-10 17:36] VITALS: BP 124/79
== END 2019-06-10 17:42 | disposition home or self-care (01) ==
LOC: ER 10:20
DX: R56.9 Unspecified convulsions (principal); R51 Headache; I10 Essential (primary) hypertension; Z79.899 Other long term (current) drug therapy; Z87.891 Personal history of nicotine dependence
CPT/HCPCS: 99285; 96361; 96374; 96375; 36415; 87086; 84703; 85025; 87088; 80053; 81001; 87186; 70496; J3490 ×3; J0360; J1885; J2270; J2405; J7030

== ENCOUNTER 2019-10-27 07:53 | Emergency (ER) | payer MEDICAID ==
[2019-10-27 09:45] LABS: ABSOLUTE LYMPHOCYTES (AUTO) 2.5 10^3/uL (0.5-4.7); ABSOLUTE MONOCYTES (AUTO) 0.5 10^3/uL (0.1-1.4); ABSOLUTE NEUT (AUTO) 3.7 10^3/uL (1.7-8.2); BASOPHILS % (AUTO) 0.2 % (0-2); EOSINOPHILS % (AUTO) 0.5 % (0-6); HEMATOCRIT 31.1 % (36.0-47.0); LYMPHOCYTES % (AUTO) 37.1 % (13-45); MEAN CORPUSCULAR HEMOGLOBIN 22.4 pg (27.0-33.4); MEAN CORPUSCULAR HGB CONC 32.3 g/dL (32.0-36.0); MEAN CORPUSCULAR VOLUME 70 fl (80-97); MONOCYTES % (AUTO) 7.9 % (3-13); PLATELET COUNT 409 10^3/uL (150-450); RED BLOOD COUNT 4.47 10^6/uL (3.72-5.28); RED CELL DISTRIBUTION WIDTH 20.1 % (11.5-14.0); SEGMENTED NEUTROPHILS % (AUTO) 54.3 % (42-78); TOTAL CELLS COUNTED % (AUTO) 100 %; WHITE BLOOD COUNT 6.8 10^3/uL (4.0-10.5)
--- NOTE | 2019-10-27 09:57 | ER Document Report ---
ED General - General Chief Complaint: Vaginal Bleeding Stated Complaint: VAGINAL BLEEDING Time Seen by Provider: 10/27/19 09:11 Notes: 23-year-old female A1 presenting today after passing a large clot around 1:00 this morning. States she has had vaginal bleeding since then. States it has decreased since this morning, but it is still occurring. She denies any abdominal cramping or pain. She does have a history of a previous miscarriage back in 2015. She recently gave back in May. Her last menstrual period was at the end of July. She has seen by [facility] for medical care but has not established care with an SKIN TOGGLER. States that last time she was seen by the health department and women's health. She denies any nausea, vomiting or additional symptoms at this time. TRAVEL OUTSIDE OF THE [place] IN LAST 30 DAYS: No - Related Data Allergies/Adverse Reactions: No Known Allergies Allergy (Verified 06/07/19 13:23) Past Medical History - Social History Smoking Status: Never Smoker Chew tobacco use (# tins/day): No Frequency of alcohol use: None Drug Abuse: None Family History: Reviewed & Not Pertinent, Other - Grandmother with seizure disorder Patient has homicidal ideation: No Neurological Medical History: Reports: Hx Seizures - Seizures last week, undiagnosed as to etiology Renal/ Medical History: Denies: Hx Peritoneal Dialysis Review of Systems - Review of Systems Constitutional: No symptoms reported EENT: No symptoms reported Cardiovascular: No symptoms reported Respiratory: No symptoms reported Gastrointestinal: No symptoms reported Genitourinary: No symptoms reported Female Genitourinary: See HPI Musculoskeletal: No symptoms reported Skin: No symptoms reported Physical Exam - Vital signs Vitals: Temp Pulse Resp BP Pulse Ox 98.6 F 73 16 129/68 H 100 10/27/19 08:02 10/27/19 08:02 10/27/19 08:02 10/27/19 08:02 10/27/19 08:02 Interpretation: Normal - Notes Notes: Adult General: GENERAL: Alert, interacts well. No acute distress HEAD: Normocephalic, atraumatic EYES: Extraocular movements intact. ENT: Airway patent. Nares patent. NECK: Full range of motion. Supple. Trachea midline. No lymphadenopathy. LUNGS: Clear to auscultation bilaterally, no wheezes, rales, or rhonchi. No respiratory distress. Nontender chest wall. HEART: Regular rate and rhythm. No murmurs, rubs or gallops. ABDOMEN: Soft, nontender. Nondistended. GENITOURINARY: Deferred EXTREMITIES: Moves all 4 extremities spontaneously. BACK: Moves all extremities with full range of motion. NEUROLOGICAL: Alert and oriented x3. Normal speech. Strength 5/ 5 in all extremities. PSYCH: Normal affect, normal mood. SKIN: Warm, dry, normal turgor. No rashes or lesions noted. Course - Re-evaluation Re-evalutation: 10/27/19 12:41 I was notified by the ink technician that she has twins. The initial read showed a single living intrauterine intrauterine and that she is in the third trimester . I called radiology to confirm. I discussed with the radiologist. Radiologist read the ultrasound and stated that there is a living dichorionic diamniotic twin gestation without evidence of co mplication. This information has not yet been uploaded into [employer]. The initial report describes the wrong accession number. I have been waiting for an extended period of time for the addendum to upload into [employer]. I called radiology again. They see the addendum in the PACS system. and do not know why the addendum to the original report is not uploading. I walked over to radiology and received a printout that does note the addendum. This printout shows the impression that this is a living dichorionic diamniotic twin gestation without evidence of complication. No subchorionic bleed. I discussed these results with the patient. I also discussed with the patient that she is anemic. She states that she is typically anemic during . She is not currently taking a vitamin. I discussed with her the importance of this and will order her prenatals. Also recommend that she follows up with her primary care provider and establish care with an SKIN TOGGLER. She may return the emergency department for worsening symptoms or development of new symptoms. I also apologize at length for the delay in getting the ultrasound results as I wanted to ensure that these results were accurate before providing her the information. Patient acknowledges and verbalizes understanding of instructions and plan. All questions answered. - Vital Signs Vital signs: Temp Pulse Resp BP Pulse Ox 98.6 F 73 16 129/68 H 100 10/27/19 08:02 10/27/19 08:02 10/27/19 08:02 10/27/19 08:02 10/27/19 08:02 - Laboratory Result Diagrams: 10/27/19 09:13 10/27/19 09:13 Laboratory results interpreted by me: 10/27/19 10/27/19 10/27/19 09:13 09:13 09:13 Hgb 10.0 L Hct 31.1 L MCV 70 L MCH 22.4 L RDW 20.1 H Sodium 134.1 L BUN 5 L Creatinine 0.51 L Serum HCG, Qual POSITIVE H Beta HCG, Quant 056189.00 H Urine Blood 10/27/19 09:13 Hgb Hct MCV MCH RDW Sodium BUN Creatinine Serum HCG, Qual Beta HCG, Quant Urine Blood SMALL H Discharge - Discharge Clinical Impression: Vaginal bleeding affecting early Dichorionic diamniotic twin gestation Qualifiers: Trimester: first trimester Qualified Code(s): O30.041 - Twin , dichorionic/diamniotic, first trimester Anemia Qualifiers: Anemia type: unspecified type Qualified Code(s): D64.9 - Anemia, unspecified Condition: Stable Disposition: HOME, SELF-CARE Instructions: Anemia ([facility]), Vaginal Bleeding ([facility]) Additional Instructions: Your ultrasound shows a living dichorionic, diamniotic twin gestation without evidence of complication. It also showed no subchorionic hemorrhage. Your labs did show that you are anemic. I have prescribed you a vitamin. Please follow up with your primary care provider. Please establish care with an SKIN TOGGLER provider. You may return to the emergency department for worsening symptoms or development of new symptoms. Prescriptions: 114/Iron A-G/Folate 1 [Prenate Elite Tablet] 1 each PO DAILY 30 Days #30 tablet
[2019-10-27 10:10] LABS: APPEARANCE,URINE SLIGHTLY-CLOUDY; BILIRUBIN,URINE NEGATIVE (NEGATIVE); COLOR,URINE YELLOW; GLUCOSE, URINE NEGATIVE (NEGATIVE); KETONES,URINE NEGATIVE (NEGATIVE); PROTEIN,URINE NEGATIVE (NEGATIVE); UROBILINOGEN,URINE NEGATIVE mg/dL (<2.0)
[2019-10-27 10:12] LABS: ALKALINE PHOSPHATASE 116 U/L (38-126); ANION GAP 8 (5-19); ASPARTATE AMINO TRANSFERASE 23 U/L (14-36); BILIRUBIN,TOTAL 0.4 mg/dL (0.2-1.3); BLOOD UREA NITROGEN 5 mg/dL (7-20); CALCIUM 9.7 mg/dL (8.4-10.2); CARBON DIOXIDE 23 mmol/L (22-30); CHLORIDE 103 mmol/L (98-107); GLUCOSE 87 mg/dL (75-110); POTASSIUM 4.5 mmol/L (3.6-5.0); TOTAL PROTEIN 7.9 g/dL (6.3-8.2)
--- NOTE | 2019-10-27 10:51 | RADIOLOGY REPORT (SQ) ---
EXAM DESCRIPTION: U/S 03317 + EACH ADDIT GEST; U/S [id number] TRNABD 1GES W/ODOP IMAGES COMPLETED DATE/TIME: 10/27/2019 10:37 am REASON FOR STUDY: VAG BLEEDING; bleeding COMPARISON: 04/28/2019 TECHNIQUE: Limited transabdominal grayscale ultrasound for evaluation of specific requested obstetri monica parameters. LIMITATIONS: None. FINDINGS: CERVICAL LENGTH: 3.2 cm 4.6 cm HUNG: 4.6 cm. FHR: 147 beats per minute. PRESENTATION: Cephalic. PLACENTA: Not assessed ANATOMY: Not assessed OTHER: Limited evaluation reveals normal, symmetric growth with concordant dates. IMPRESSION: Single live intrauterine gestation demonstrating symmetric growth and size congruent wit h dates. HUNG equals 4.6 cm on today's examination. Trimester of : Third trimester - 28 weeks to delivery. TECHNICAL DOCUMENTATION: JOB ID: [id number] 2010 [employer]- All Rights Reserved Reading location - IP/workstation name: [email or web address]
--- NOTE | 2019-10-27 10:51 | RADIOLOGY REPORT (SQ) ---
EXAM DESCRIPTION: U/S 05509 + EACH ADDIT GEST; U/S [id number] TRNABD 1GES W/ODOP IMAGES COMPLETED DATE/TIME: 10/27/2019 10:37 am REASON FOR STUDY: VAG BLEEDING; bleeding COMPARISON: 04/28/2019 TECHNIQUE: Limited transabdominal grayscale ultrasound for evaluation of specific requested obstetri monica parameters. LIMITATIONS: None. FINDINGS: CERVICAL LENGTH: 3.2 cm 4.6 cm HUNG: 4.6 cm. FHR: 147 beats per minute. PRESENTATION: Cephalic. PLACENTA: Not assessed ANATOMY: Not assessed OTHER: Limited evaluation reveals normal, symmetric growth with concordant dates. IMPRESSION: Single live intrauterine gestation demonstrating symmetric growth and size congruent wit h dates. HUNG equals 4.6 cm on today's examination. Trimester of : Third trimester - 28 weeks to delivery. TECHNICAL DOCUMENTATION: JOB ID: [id number] 2010 [employer]- All Rights Reserved Reading location - IP/workstation name: [email or web address]
[2019-10-27 13:13] VITALS: BP 125/70
== END 2019-10-27 13:10 | disposition home or self-care (01) ==
LOC: ER 07:53
DX: O46.91 Antepartum hemorrhage, unspecified, first trimester (principal); O30.041 Twin pregnancy, dichorionic/diamniotic, first trimester; O99.011 Anemia complicating pregnancy, first trimester; Z3A.00 Weeks of gestation of pregnancy not specified
CPT/HCPCS: 36415; 76801; 76802; 80053; 81001; 84702; 84703; 85025; 86900; 86901; 99284

== ENCOUNTER 2020-04-08 11:02 | Outpatient (CLI) | payer MEDICAID ==
[2020-04-08 12:06] LABS: ABSOLUTE MONOCYTES (AUTO) 0.4 10^3/uL (0.1-1.4); ABSOLUTE NEUT (AUTO) 5.2 10^3/uL (1.7-8.2); BASOPHILS % (AUTO) 0.3 % (0-2); EOSINOPHILS % (AUTO) 0.6 % (0-6); HEMATOCRIT 20.1 % (36.0-47.0); LYMPHOCYTES % (AUTO) 26.4 % (13-45); MEAN CORPUSCULAR HEMOGLOBIN 19.1 pg (27.0-33.4); MEAN CORPUSCULAR HGB CONC 31.7 g/dL (32.0-36.0); MONOCYTES % (AUTO) 5.1 % (3-13); PLATELET COUNT 223 10^3/uL (150-450); RED BLOOD COUNT 3.32 10^6/uL (3.72-5.28); RED CELL DISTRIBUTION WIDTH 18.3 % (11.5-14.0); SEGMENTED NEUTROPHILS % (AUTO) 67.6 % (42-78); TOTAL CELLS COUNTED % (AUTO) 100 %; WHITE BLOOD COUNT 7.7 10^3/uL (4.0-10.5)
[2020-04-08 12:08] LABS: HEMOGLOBIN 6.4 g/dL (12.0-15.5); MEAN CORPUSCULAR VOLUME 60 fl (80-97)
[2020-04-08 12:09] LABS: APPEARANCE,URINE SLIGHTLY-CLOUDY; BILIRUBIN,URINE NEGATIVE (NEGATIVE); COLOR,URINE YELLOW; GLUCOSE, URINE NEGATIVE (NEGATIVE); KETONES,URINE 20 mg/dL (NEGATIVE); LEUKOCYTE ESTERASE,URINE LARGE (NEGATIVE); NITRITE,URINE NEGATIVE (NEGATIVE); PROTEIN,URINE 30 mg/dL (NEGATIVE); URINE SPECIFIC GRAVITY 1.013
[2020-04-08 12:10] LABS: BACTERIA (WET MOUNT) 4+ BACTERIA SEEN; EPITHELIALS (WET MOUNT) 4+ EPITHELIALS SEEN; RBCS (WET MOUNT) 1+ RBCS SEEN; T.VAGINALIS (WET MOUNT) NO TRICHOMONAS SEEN; WBCS (WET MOUNT) 4+ WBCS SEEN; YEAST (WET MOUNT) YEAST SEEN
[2020-04-08] MEDS ORDERED: FLUCONAZOLE 100 MG TABLET PO ONE (12:17)
--- NOTE | 2020-04-08 12:28 | Non Stress Test Report ---
Non Stress Test Datetime Report Generated by CPN: 04/08/2020 12:28 DEMOGRAPHIC EGA NST: 33.1 INDICATION Indication for Study (NST) Other: twins, back pain and vaginal pressure MONITORING Monitor Explained: Monitor Explained; Test Explained; Patient Verbalized Understanding Time on Monitor: 04/08/2020 11:27 Time off Monitor: 04/08/2020 11:50 NST Duration: 23 NST INTERVENTIONS NST Interventions: None Physician Notified NST: Dr Curtis BABY A: [id number] BABY A Movement : Present Contraction Frequency : irregular FHR Baseline : 150 Accelerations : 15X15 Decelerations : None Variability : Moderate 6-25bpm NST Review: Meets Criteria for Reactive NST NST Review and Verified By : Jay Villanueva RN NST Results: Reactive BABY B Movement: Present FHR Baseline: 155 Accelerations: 15X15 Decelerations: None Variability: Moderate 6-25bpm NST Review: Meets Criteria for Reactive NST NST Results: Reactive NST REPORT Report Trigger: Send Report
[2020-04-08 12:31] LABS: ANISOCYTOSIS 2+; HYPOCHROMASIA 3+; OVALOCYTES 1+; TARGET CELLS SLIGHT; TOXIC GRANULATION 1+
[2020-04-08 12:32] LABS: URINE AMPHETAMINES SCREEN NEGATIVE; URINE BARBITURATES SCREEN NEGATIVE; URINE BENZODIAZEPINES SCREEN NEGATIVE; URINE COCAINE SCREEN NEGATIVE; URINE METHADONE SCREEN NEGATIVE; URINE PHENCYCLIDINE SCREEN NEGATIVE
[2020-04-08 12:32] LABS: PLATELET COMMENT ADEQUATE; PLATELET GIANT PRESENT; PLATELET LARGE PRESENT
[2020-04-08 12:41] LABS: URINE MARIJUANA (THC) SCREEN UNCONFIRMED POSITIVE
[2020-04-08] MEDS ORDERED: FLUCONAZOLE 100 MG TABLET ONE (13:14)
[2020-04-08 13:36] LABS: CHLAM PCR NOT DETECTED (NOT DETECT)
--- NOTE | 2020-04-08 16:10 | RADIOLOGY REPORT (SQ) ---
EXAM DESCRIPTION: U/S OB 14+ TRNABD 1GES W/O DOP; U/S 07112 + EACH ADDIT GEST IMAGES COMPLETED DATE/TIME: 04/08/2020 1:12 pm REASON FOR STUDY: LC- abd pain, no PNC; labor check COMPARISON: None. TECHNIQUE: Static and Dynamic grayscale imaging performed of gravid uterus using transabdominal appr oach. Additional selected color Doppler and spectral images recorded. All stored on PACS. LIMITATIONS: None. FINDINGS: FETUSES SEEN:2 FETUS A PRESENTATION: Cephalic. FETUS B PRESENTATION: Cephalic. FETUS A: EGA: 34 weeks, 3 days Calculated using BPD,FL,HC,AC documented on images. No discrepancy with clinica l dates. BRANDON: 05/17/2020 EFW: 2,504 grams PERCENTILE: 41st LVP: 7.6 cm PLACENTA: Poorly visualized due to advanced gestational age. HEART RATE: 160 beats per minute. FOUR CHAMBER HEART: Visualized. THREE VESSEL CORD: Yes. CORD INSERTION: Not visualized. KIDNEYS AND BLADDER: Visualized. Appear normal. STOMACH: Visualized. Appears normal. SPINE: Normal as visualized. BRAIN AND LATERAL VENTRICLES: Not adequately visualized due to advanced gestational age and pos itioning. OTHER: No other significant finding. FETUS B: EGA: 33 weeks, 3 days Calculated using BPD,FL,HC,AC documented on images. No discrepancy with clinica l dates. BRANDON: 05/24/2020 EFW: 2,237 grams PERCENTILE: 26th LVP: 4.5 PLACENTA: Fundal HEART RATE: 141 beats per minute. FOUR CHAMBER HEART: Not visualized due to advanced gestational age and positioning. THREE VESSEL CORD: Yes. CORD INSERTION: Not visualized. KIDNEYS AND BLADDER: Kidneys not visualized due to advanced gestational age and positioning. B ladder appears normal. STOMACH: Visualized. Appears normal. SPINE: Normal as visualized. BRAIN AND LATERAL VENTRICLES: Visualized. Appear normal. OTHER: No other significant finding. MATERNAL ADNEXA: Maternal ovaries not visualized. CERVICAL LENGTH: 3.1 cm Closed. OTHER: No other significant finding. IMPRESSION: LIVING INTRAUTERINE TWIN GESTATION. ESTIMATED GESTATIONAL AGE 34 WEEKS, 3 DAYS FOR TWIN A AND 33 WEEKS, 3 DAYS FOR TWIN B EVALUATION IS LIMITED BY ADVANCED GESTATIONAL AGE, TWIN GESTATION, AND POSITIONING. NO G ROSS ABNORMALITIES ARE DEMONSTRATED. Trimester of : Third trimester - 28 weeks to delivery. TECHNICAL DOCUMENTATION: JOB ID: [id number] 2010 [employer]- All Rights Reserved Reading location - IP/workstation name: [email or web address]
--- NOTE | 2020-04-08 16:10 | RADIOLOGY REPORT (SQ) ---
EXAM DESCRIPTION: U/S OB 14+ TRNABD 1GES W/O DOP; U/S [id number] + EACH ADDIT GEST IMAGES COMPLETED DATE/TIME: 04/08/2020 1:12 pm REASON FOR STUDY: LC- abd pain, no PNC; labor check COMPARISON: None. TECHNIQUE: Static and Dynamic grayscale imaging performed of gravid uterus using transabdominal appr oach. Additional selected color Doppler and spectral images recorded. All stored on PACS. LIMITATIONS: None. FINDINGS: FETUSES SEEN:2 FETUS A PRESENTATION: Cephalic. FETUS B PRESENTATION: Cephalic. FETUS A: EGA: 34 weeks, 3 days Calculated using BPD,FL,HC,AC documented on images. No discrepancy with clinica l dates. BRANDON: 05/17/2020 EFW: 2,504 grams PERCENTILE: 41st LVP: 7.6 cm PLACENTA: Poorly visualized due to advanced gestational age. HEART RATE: 160 beats per minute. FOUR CHAMBER HEART: Visualized. THREE VESSEL CORD: Yes. CORD INSERTION: Not visualized. KIDNEYS AND BLADDER: Visualized. Appear normal. STOMACH: Visualized. Appears normal. SPINE: Normal as visualized. BRAIN AND LATERAL VENTRICLES: Not adequately visualized due to advanced gestational age and pos itioning. OTHER: No other significant finding. FETUS B: EGA: 33 weeks, 3 days Calculated using BPD,FL,HC,AC documented on images. No discrepancy with clinica l dates. BRANDON: 05/24/2020 EFW: 2,237 grams PERCENTILE: 26th LVP: 4.5 PLACENTA: Fundal HEART RATE: 141 beats per minute. FOUR CHAMBER HEART: Not visualized due to advanced gestational age and positioning. THREE VESSEL CORD: Yes. CORD INSERTION: Not visualized. KIDNEYS AND BLADDER: Kidneys not visualized due to advanced gestational age and positioning. B ladder appears normal. STOMACH: Visualized. Appears normal. SPINE: Normal as visualized. BRAIN AND LATERAL VENTRICLES: Visualized. Appear normal. OTHER: No other significant finding. MATERNAL ADNEXA: Maternal ovaries not visualized. CERVICAL LENGTH: 3.1 cm Closed. OTHER: No other significant finding. IMPRESSION: LIVING INTRAUTERINE TWIN GESTATION. ESTIMATED GESTATIONAL AGE 34 WEEKS, 3 DAYS FOR TWIN A AND 33 WEEKS, 3 DAYS FOR TWIN B EVALUATION IS LIMITED BY ADVANCED GESTATIONAL AGE, TWIN GESTATION, AND POSITIONING. NO G ROSS ABNORMALITIES ARE DEMONSTRATED. Trimester of : Third trimester - 28 weeks to delivery. TECHNICAL DOCUMENTATION: JOB ID: [id number] 2010 [employer]- All Rights Reserved Reading location - IP/workstation name: [email or web address]
[2020-04-09 13:58] LABS: PATH REVIEW PATHOLOGIST REVIEWED
[2020-04-10 05:38] LABS: HEPATITIS C VIRUS AB <0.1 s/co ratio (0.0-0.9)
[2020-04-10 06:57] LABS: HEPATITS B SURFACE ANTIGEN Negative (Negative)
== END 2020-04-08 13:33 | disposition home or self-care (01) ==
LOC: LC 11:02
PROVIDERS: ATTEND Obstetrics & Gynecology
DX: O30.043 Twin pregnancy, dichorionic/diamniotic, third trimester (principal); O99.891 Other specified diseases and conditions complicating pregnancy; M54.9 Dorsalgia, unspecified; O09.33 Supervision of pregnancy with insufficient antenatal care, third trimester; Z3A.35 35 weeks gestation of pregnancy; Z11.4 Encounter for screening for human immunodeficiency virus [HIV]
CPT/HCPCS: 59025; 86900; 86901; 36415; 87210; 86850; 85025; 86762; 86592; 81001; 87081; 87340; 86701; 80307; 87491; 87591; 86803; 86804; 76805; 76810; G0480 ×2; J3490; 80349